=== PATIENT | female | born 2005 | race Caucasian/White ===

== ENCOUNTER 2025-05-29 21:10 | Emergency (ER) | payer OTHER, SELFPAY ==
--- OUTSIDE RECORDS SUMMARY | 2021-10-13 07:01 | XMS_ITS | Continuity of Care Document ---
Author Organization [facility] Address [address] [address] [place] [address] Care Team Providers Care Carbide Tool Maker Name Role Phone [place], [place] Unavailable Unav ailable Procedures Procedure Date Sigmoi Colono Advance Directives Directive Yes / No Effective Date File Name No Information Encounters Encounter Description Practice Location Reason(s) For Visit Diagnoses Date Provider Providers Copied on Encounter [facility], [address] [address], [place], [place], [id number], [place] [facility] No [facility]. [address] [address], [place], [place], [id number], [place]. tel:[phone] [facility], [address] [address], [place], [place], [id number], [place] [facility] No Information [facility]. [address] [address], [place], [place], [id number], [place]. tel:[phone] Family History Family Member Type Diagnosis Age At Onset No Information Payers Payer name Insurance type Covered republican ID Violetta knox(s) [facility] [id number] Social History Type Description Quantity Date Captured Comments Sex Female Smoking Status No Information Chief Complaint And Reason For Visit No Information Reason For Referral Reason For Referral No Information History Of Present Illness Encounter Date Complaint History Of Prese nt Illness No Information Functional Status Date Functional Assessmen t No Information Instructions Date Instruction Additional Infor mation No Information Assessments Type Assessment Date No Information Patient Care Teams Name Effective Dates (start - stop) Status Members No Information
--- OUTSIDE RECORDS SUMMARY | 2025-04-23 06:00 | XMS_ITS | Encounter Summary ---
Author Organization [facility] Address [address] [place] [address] Care Team Providers Care Occupational Therapist Home Based Name Role Phone Patricia AnnC Unavailable [phone] Loreto De Jesus PA-C Unavailable [phone] Patricia Ann PA-C Unavailable [phone] Patricia Ann PA-C Primary Care Provider [phone] Loreto De Jesus-C Unavailable [phone] Noé Joseph Unavailable [phone] Encounter Details Date Type Department Care Team (Late st Contact Info) Description 04/23/2025 7:00 AM CDT Virtual Visit [facility] [address] [place] [address] Noé Joseph LICSW [address] [place] [address] Social anxiety disorder (Primary Dx) Social History Tobacco Use Types Packs/Day Years Used Date Smoking Tobacco: Never Smokeless Tobacco: Never Comments:cigar outside Alcohol Use Standard Drinks/Week Comments Never 0 (1 standard drink = 0.6 oz pur e alcohol) Social Connection and Isolation Panel Answer Date Recorded Frequency of Communication with Friends and Fami ly Not on file 07/05/2024 How often do you get togethe r with friends or relatives? Three times a week 07/05/2024 Attends Anabaptism Services Not on file 07/05 Active Member of Clubs or Organizations Not on f ile 07/05/2024 Attends Club or Organization Meetings Not on ken e 07/05/2024 Marital Status Not on file 07/05/2024 AUDIT-C Answer Date Recorded Q1: How often do you have a drink containing alcohol? Never 07/04/2023 Q2: How many drinks containi ng alcohol do you have on a typical day when you are drinking? Patient does not drink Q3: How often do you have si x or more drinks on one occasion? Never 07/04/2023 PHQ-2 Answer Date Recorded PHQ-2 Score 1 04/23/2025 [facility] of Occupat ional Health - Occupational Stress Questionnaire Answer Date Recorded Do you feel stress - tense, restless, nervous, or anxious, or unable to sleep at night because your mind is troubled all the time - these days? Only a little 07/05/2024 Exercise Vital Sign Answer Date Recorde d On average, how many days pe r week do you engage in moderate to strenuous exercise (like a brisk walk)? 3 days 07/05/2024 On average, how many minutes do you engage in exercise at this level? 30 min 07/05/2024 Adolescent Education Answer Date Record ed Getting School Help Needed Not on file 04/21 Food Insecurity Answer Date Recorded Within the past 12 months, d id you worry that your food would run out before you got money to buy more? No 07/05/2024 Within the past 12 months, d id the food you bought just not last and you didn t have money to get more? No 07/05/2024 Housing Stability Answer Date Recorded Do you have housing? (Housin g is defined as stable permanent housing and does not include staying outside in a car, in a tent, in an abandoned building, in an overnight fdc, or couch-surfing.) Yes 07/05/2024 Are you worried about losing your housing? No 07/05/2024 Financial Resource Strain Answer Date R ecorded Within the past 12 months, h ave you or your family members you live with been unable to get utilities (heat, electricity) when it was really needed? No 07/05/2024 Transportation Needs Answer Date Record ed Within the past 12 months, h as lack of transportation kept you from medical appointments, getting your medicines, non-medical meetings or appointments, work, or from getting things that you need? No 07/05/2024 Interpersonal Safety Answer Date Record ed Do you feel physically and e motionally safe where you currently live? Yes 07/06/2024 Within the past 12 months, h ave you been hit, slapped, kicked or otherwise physically hurt by someone? No 07/06/2024 Within the past 12 months, h ave you been humiliated or emotionally abused in other ways by your partner or ex-partner? No 07/06/2024 Comments No Sex and Gender Information Value Date Recorded Sex Assigned at Not on file Legal Sex Female 4:30 AM DIE SETTER Gender Identity Not on file Sexual Orientation Not on file documented as of this encounter Progress Notes * Noé Joseph, ANALYSIS CONSULTANT - 04/23/2025 7:00 AM CDT Images from the original note were not included. [facility] Progress Note Patient Name: Milly Philip Date: 04/23/2025 Service Type: Individual Session Start Time: 7am Session End Time: 7:55am Session Length: 55 min Session #: 11 Attendees: Client attended alone Service Modality: Video Visit: Provider verified identity through the following two step process. Patient provided: Patient and Patient address Telemedicine Visit: The patient's condition can be safely assessed and treated via synchronous audio and visual telemedicine encounter. Reason for Telemedicine Visit: Patient has requested telehealth visit Originating Site (Patient Location): Patient's home Distant Site (Provider Location): Provider Remote Setting- Home Office Consent: The patient/guardian has verbally consented to: the potential risks and benefits of telemedicine (video visit) versus in person care; bill my insurance or make self-payment for services provided; and responsibility for payment of non-covered services. Patient would like the video invitation sent by: My Chart Mode of Communication: Video Conference via [facility] Distant Location (Provider): Off-site As the provider I attest to compliance with applicable laws and regulations related to telemedicine. DATA Extended Session (53+ minutes): PROLONGED SERVICE IN THE OUTPATIENT SETTING REQUIRING DIRECT ([id number]) PATIENT CONTACT BEYOND THE USUAL SERVICE: - Longer session due to limited access to mental health appointments and necessity to address patient's distress / complexity - due to nature of patient's cognitive / emotional processing style Interactive Complexity: No Crisis: No Progress Since Last Session (Related to Symptoms / Goals / Homework): Symptoms: Worsening (anxiety) Homework: Achieved / completed to satisfaction Episode of Care Goals: Satisfactory progress - ACTION (Actively working towards change); Intervenedby reinforcing change plan / affirming steps taken Current / Ongoing Stressors and Concerns: -Patient reports that the past two weeks has been very stressful due to her mid term exams / projects. -Patient reports that when she is feeling really stressed she has a really tough time managing thehighs and lows of my emotions. -Patient reports that she printed out an emotion wheel to help her identify how she's feeling. -Patient reports that when she is alone she can manage her emotions better than when she is with others. -Processed through recent feeling of disconnect in her relationship. -Patient also described themes related to comparison and finding ways to separate herself from others. Treatment Objective(s) Addressed in This Session: use at least 2 coping skills for anxiety management in the next 2 weeks, use cognitive strategies identified in therapy to challenge anxious thoughts Intervention: CBT: cognitive restructuring DBT: validation, distress tolerance skills Emotion Focused Therapy: radical acceptance of emotions, emotion identification Motivational Interviewing: OARS skills, stages of change Solution Focused: strengths-based Reviewed window of tolerance, hypoarousal, and hyperarousal. Locus of control Assessments completed prior to visit: The following assessments were completed by patient for this visit: PHQ9: 01/31/2024 12:23 PM 07/06/2024 1:16 PM 08/19/2024 10:50 AM 10/16/2024 8:41 AM 11/20/2024 7:41 AM 03/12/2025 7:54 AM 04/23/2025 6:54 AM PHQ-9 SCORE PHQ-9 Total Score MyChart 1 (Minimal depression) 2 (Minimal depression) 2 (Minimal depression) 0 0 3 (Minimal depression) PHQ-9 Total Score 1 1 2 2 0 0 3 Patient-reported GAD7: 10/07/2023 7:16 PM 01/31/2024 12:23 PM 02/14/2024 12:50 PM 07/06/2024 1:16 PM 09/17/2024 7:09 PM 12/30/2024 4:19 PM 04/20/2025 4:49 PM TANISHA-7 SCORE Total Score 8 (mild anxiety) 4 (minimal anxiety) 4 (minimal anxiety) 9 (mild anxiety) 3 (minimal anxiety) 6 (mild anxiety) Total Score 8 4 4 3 9 3 6 Patient-reported PROMIS 10-Global Health (only subscores and total score): 08/08/2023 1:02 PM 12/16/2023 3:55 PM 01/31/2024 12:25 PM 07/05/2024 3:32 PM 10/16/2024 8:42 AM 03/08/2025 1:19 PM PROMIS-10 Scores Only Global Mental Health Score 13 14 13 16 13 16 Global Physical Health Score 14 14 14 18 16 16 PROMIS TOTAL - SUBSCORES 27 28 27 34 29 32 Patient-reported ASSESSMENT: Current Emotional / Mental Status (status of significant symptoms): Risk status (Self / Other harm or suicidal ideation) Patient denies current fears or concerns for personal safety. Patient denies current or recent suicidal ideation or behaviors. Patient denies current or recent homicidal ideation or behaviors. Patient denies current or recent self injurious behavior or ideation. Patient denies other safety concerns. Patient reports there has been no change in risk factors since their last session. Patient reports there has been no change in protective factors since their last session. Recommended that patient call 911 or go to the local ED should there be a change in any of these risk factors Appearance: Appropriate Eye Contact: Good Psychomotor Behavior: Normal Attitude: Cooperative Orientation: All Speech Rate / Production: Normal Volume: Normal Mood: Anxious Affect: Worrisome Thought Content: Clear Thought Form: Coherent Logical Insight: Good Medication Review: No current psychiatric medications prescribed Medication Compliance: NA Changes in Health Issues: None reported Chemical Use Review: Substance Use: Chemical use reviewed, no active concerns identified Tobacco Use: No current tobacco use. Diagnosis: 1. Social anxiety disorder Collateral Reports Completed: Not Applicable PLAN: (Patient Tasks / Therapist Tasks / Other) In the coming month, patient will challenge shaming self talk. Patient will draw awareness to window of tolerance. Patient will utilize positive self affirmations. Patient will tap into idea of transience as it relates to emotional states. Patient will practice radical acceptance around unwanted emotions. Next appt: 05/21. ANNY Delacruz, ANALYSIS CONSULTANT 04/23/2025 Individual Treatment Plan Patient's Name: Milly Philip Date Of : 2005 Date of Creation: 01/31/2024 Date Treatment Plan Last Reviewed/Revised: 03/12/2025 DSM5 Diagnoses: 300.23 (F40.10) Social Anxiety Disorder Psychosocial / Contextual Factors: relational dynamics, school stressors, upcoming study abroad trip PROMIS (reviewed every 90 days): 08/08/2023 1:02 PM 12/16/2023 3:55 PM 01/31/2024 12:25 PM 07/05/2024 3:32 PM 10/16/2024 8:42 AM 03/08/2025 1:19 PM PROMIS-10 Scores Only Global Mental Health Score 13 14 13 16 13 16 Global Physical Health Score 14 14 14 18 16 16 PROMIS TOTAL - SUBSCORES 27 28 27 34 29 32 Patient-reported Referral / Collaboration: Referral to another professional/service is not indicated at this time.. Anticipated number of session for this episode of care: 12+ Anticipation frequency of session: Monthly Anticipated Duration of each session: 53 or more minutes Treatment plan will be reviewed in 90 days or when goals have been changed. MeasurableTreatment Goal(s) related to diagnosis / functional impairment(s) Goal 1: Patient will decrease symptoms of anxiety as evidenced by decreased TANISHA- 7 score. ???I will know I've met my goal when I feel less stuck with my thoughts and more confident in social settings.??? Objective #A (Patient Action) Patient will use at least 2 coping skills for anxiety management in the next 2 weeks. Use cognitive strategies identified in therapy to challenge anxious thoughts. Status: continued: 07/07/2024, 10/16/2024, 03/12/2025 Intervention(s) Therapist will teach CBT skills to challenge cognitive distortions and core beliefs. Therapist will teach and model positive self-talk behaviors. Therapist will use psychodynamic approaches to explore early attachments and schemas. Patient has reviewed and agreed to the above plan. ANNY Delacruz LICSW 03/12/2025 documented in this encounter Plan of Treatment Upcoming Encounters Date Type Department Care Team (Late st Contact Info) Description 06/09/2025 8:30 AM DIE SETTER Office Visit [facility] [id number] [place] [phone] Kesha Monique PA-C [id number] [place] [phone] 06/18/2025 10:00 AM DIE SETTER Virtual Visit [facility] [address] [place] [phone] Noé Joseph[address] [address] 08/11/2025 10:00 AM DIE SETTER Virtual Visit [facility] [address] [place] [phone] Noé Joseph[address] [address] documented as of this encounter Visit Diagnoses Diagnosis Social anxiety disorder- Primary Social phobia documented in this encounter Additional Health Concerns Assessment Noted Time PHQ-9 Depression Total Score: 3 04/23/20 25 6:54 AM CDT documented as of this encounter Care Teams Occupational Therapist Home Based Relationship Specialty Start Date End Date Patricia Ann PA-C [id number] [place] [phone] PCP - General Family Medicine 02/24/24 Patricia Ann PA-C [id number] [place] [phone] Referring Physician Family Medicine 07/05/23 Loreto De Jesus PA-C [address] [place] [address] Physician Braille Operator Dermatology 07/05/23 Patricia Ann PA-C [address] [place] [phone] Assigned PCP 07/13/23 Loreto De Jesus PA-C [address] [place] [address] Assigned Dermatology Provider 09/27/24 Noé Joseph LICSW [address] [place] [address] Assigned Behavioral Health Provider 11/27/24 documented as of this encounter
--- OUTSIDE RECORDS SUMMARY | 2025-05-21 08:00 | XMS_ITS | Encounter Summary ---
Author Organization [facility] Address [address] [place] [address] Care Team Providers Care High [employer] Auto Repair Teacher Name Role Phone Patricia AnnC Unavailable Loreto De Jesus PA-C Unavailable [phone] Patricia Ann PA-C Unavailable [phone] Patricia Ann PA-C Primary Care Provider [phone] Loreto De JesusC Unavailable [phone] Noé Joseph Unavailable [phone] Encounter Details Date Type Department Care Team (Late st Contact Info) Description 05/21/2025 8:00 AM CONTROL CENTER OPERATOR Virtual Visit [facility] [address] [place] [phone] Noé Joseph LICSW [address] [place] [address] Social anxiety disorder (Primary Dx) Social History [...] relatives? Three times a week 07/05/2024 Attends Church Services Not on file 07/05 Active Member [...] 07/04/2023 PHQ-2 Answer Date Recorded PHQ-2 Score 2 05/21/2025 [facility] [place] of Occupat ional Health - Occupational Stress [...] in an abandoned building, in an overnight jail, or couch-surfing.) Yes 07/05/2024 Are you worried [...] on file Legal Sex Female 4:30 AM CONTROL CENTER OPERATOR Gender Identity Not on file Sexual Orientation Not on file documented as of this encounter Progress Notes * Noé Joseph, NERVE SPECIALIST - 05/21/2025 8:00 AM CST Images from the original note were not included. [facility] Progress Note Patient Name: Milly Philip Date: 05/21/2025 Service Type: Individual Session Start Time: 8:05am Session End Time: 9am Session Length: 55 min Session #: 12 Attendees: Client attended alone Service Modality: Video [...] Chart Mode of Communication: Video Conference via [facility] Distant Location (Provider): Off-site As the provider I attest to compliance with applicable laws and regulations related to telemedicine. DATA Extended Session (53+ minutes): PROLONGED SERVICE IN THE OUTPATIENT SETTING REQUIRING DIRECT ([id number]) PATIENT CONTACT BEYOND THE USUAL SERVICE: - [...] Ongoing Stressors and Concerns: -Patient reports that she has been feeling very anxious the past several weeks. -Patient reports that she just found out she has a lab with an estranged friend - feels this is theprimary stressor driving anxiety. -Session was spent processing through pros and cons of various options within her locus of control. Treatment Objective(s) Addressed in This Session: use at least 2 coping skills for anxiety management in the next 2 weeks, use cognitive strategies identified in therapy to challenge anxious thoughts Intervention: CBT: cognitive restructuring DBT: validation, distress tolerance skills Emotion Focused Therapy: radical acceptance of emotions, emotion identification Motivational Interviewing: OARS skills, stages of change Solution Focused: strengths-based Therapist helped patient to clarify her thoughts and emotions tied to various options / pros and cons. Discussed physical, mental, and emotional boundaries and limit-setting with others. Explored management of boundaries through direct communication and limiting contact and communication with others. Discussed barriers to using boundary management skills including strong emotions and physical proximity. Client given handout on boundaries today in session. Assessments completed prior to visit: The following assessments were completed by patient for this visit: PHQ9: 07/06/2024 1:16 PM 08/19/2024 10:50 AM 10/16/2024 8:41 AM 11/20/2024 7:41 AM 03/12/2025 7:54 AM 04/23/2025 6:54 AM 05/20/2025 11:16 AM PHQ-9 SCORE PHQ-9 Total Score MyChart 2 (Minimal depression) 2 (Minimal depression) 0 0 3 (Minimal depression) 5 (Mild depression) PHQ-9 Total Score 1 2 2 0 0 3 5 Patient-reported GAD7: 01/31/2024 12:23 PM 02/14/2024 12:50 PM 07/06/2024 1:16 PM 09/17/2024 7:09 PM 12/30/2024 4:19 PM 04/20/2025 4:49 PM 05/20/2025 11:17 AM TANISHA-7 SCORE Total Score 4 (minimal anxiety) 4 (minimal anxiety) 9 (mild anxiety) 3 (minimal anxiety) 6 (mild anxiety) 7 (mild anxiety) Total Score 4 4 3 9 3 6 7 Patient-reported PROMIS 10-Global Health (only subscores and [...] Other) In the coming month, patient will practice [id number]. Patient will disengage from ruminating thoughts. Patient will practice mental and emotional boundary setting. Next appt: 06/18. ANNY Delacruz, NERVE SPECIALIST 05/21/2025 Individual Treatment Plan Patient's Name: Milly Philip [...] and agreed to the above plan. ANNY Delacruz, NERVE SPECIALIST 03/12/2025 ROL CENTER OPERATOR documented in this encounter Plan of Treatment Upcoming Encounters Date Type Department Care Team (Late st Contact Info) Description 06/09/2025 8:30 AM CONTROL CENTER OPERATOR Office Visit [facility] [address] [place] [phone] Kesha Monique PA-C [address] [place] [address] 06/18/2025 10:00 AM CONTROL CENTER OPERATOR Virtual Visit [facility] [address] [place] [phone] Noé Joseph [address] [address] 08/11/2025 10:00 AM CONTROL CENTER OPERATOR Virtual Visit [facility] [address] [place] [address] Noé Joseph [address] [address] documented as of this encounter Visit Diagnoses Diagnosis Social anxiety disorder- Primary Social phobia documented in this encounter Additional Health Concerns Assessment Noted Time PHQ-9 Depression Total Score: 5 05/20/20 25 11:16 AM CONTROL CENTER OPERATOR documented as of this encounter Care Teams [employer] Auto [employer] Teacher Relationship Specialty Start Date End Date Patricia Ann PA-C [address] [place] [phone] PCP - General Family Medicine 02/24/24 Patricia Ann PA-C [address] [place] [phone] Referring Physician Family Medicine 07/05/23 Loreto De Jesus PA-C [address] [place] [address] Physician Model And Mold Maker Plaster Dermatology 07/05/23 Patricia Ann PA-C [address] [place] [phone] Assigned PCP 07/13/23 Loreto De Jesus PA-C [address] [place] [address] Assigned Dermatology Provider 09/27/24 Noé Joseph LICSW [address] [place] [address] Assigned Behavioral Health Provider 11/27/24 documented as of this encounter
--- OUTSIDE RECORDS SUMMARY | 2025-05-26 09:58 | XMS_ITS | Continuity of Care Document ---
Author Organization [facility] Address [address] [address] [place] [address] Phone Care Team Providers Care Nurse Practitioner Manager Name Role Phone Denise HARRINGTON, Hawk Unavailable Unavailable Allergies, Adverse Reactions, Alerts Substance Reaction Status Criticality shellfish derived Active No Informa tion ibuprofen Active No Information Medications Medication Instructions Dosage Effective Dates (start - stop) Status Comments ergocalciferol (vitamin D2) 1,250 mcg (50,000 unit) capsule Take one capsule every 7 days ( once per week). - Active mesalamine 1.2 gram tablet,delayed release take 4 Tablet by ORAL route every day with a meal 4.8 G - Active Labs needed for further refills ENTYVIO Administer Entyvio 300 mg every 4 weeks infuse by IV route - Active dicyclomine 10 mg capsule take 1 capsule by oral route 3 times every day as needed 10 MG - Active ergocalciferol (vitamin D2) 1,250 mcg (50,000 unit) capsule Take one capsule every 7 days ( once per week). - Active IBgard 90 mg capsule,delayed,exten ded release take 2 capsule by oral route every day 2 capsule - Active Entyvio 300 mg intravenous solution Administer Entyvio 300 mg every four weeks, infuse by IV route - Active Levsin 0.125 mg tablet take 1 tablet by oral route every 6 hours as needed 0.125 MG - Active Procedures Procedure Date Entyvio - vedolizumab Intravenous Iv Infus Therap/dx-by Phys; To Iv Infus Therap/dx-by Phys; To Entyvio - vedolizumab Intravenous Entyvio - vedolizumab Intravenous Iv Infus Therap/dx-by Phys; To Offic/outpt E&m Estab Low Complex e/m visit add on Routine Serum Collection Entyvio - vedolizumab Intravenous Iv Infus Therap/dx-by Phys; To Entyvio - vedolizumab Intravenous Iv Infus Therap/dx-by Phys; To Entyvio - vedolizumab Intravenous Iv Infus Therap/dx-by Phys; To Entyvio - vedolizumab Intravenous Iv Infus Therap/dx-by Phys; To Entyvio - vedolizumab Intravenous Iv Infus Therap/dx-by Phys; To Routine Serum Collection Routine Serum Collection Entyvio - vedolizumab Intravenous Iv Infus Therap/dx-by Phys; To Routine Serum Collection Offic/outpt E&m Estab Low-mod Entyvio - vedolizumab Intravenous Iv Infus Therap/dx-by Phys; To Routine Serum Collection Entyvio - vedolizumab Intravenous Iv Infus Therap/dx-by Phys; To Entyvio - vedolizumab Intravenous Iv Infus Therap/dx-by Phys; To Entyvio - vedolizumab Intravenous Iv Infus Therap/dx-by Phys; To Entyvio - vedolizumab Intravenous Iv Infus Therap/dx-by Phys; To Entyvio - vedolizumab Intravenous Iv Infus Therap/dx-by Phys; To Routine Serum Collection Entyvio - vedolizumab Iv Infus Therap/dx-by Phys; To Entyvio - vedolizumab Iv Infus Therap/dx-by Phys; To Routine Serum Collection Colonoscopy Flex; W/bx 1/mx Level Iv-surg Path Gross/micro Immunocytochemistry, Each Antibody Entyvio - vedolizumab Iv Infus Therap/dx-by Phys; To Entyvio - vedolizumab Iv Infus Therap/dx-by Phys; To Offic/outpt E&m Estab Low-mod Entyvio - vedolizumab Iv Infus Therap/dx-by Phys; To Entyvio - vedolizumab Iv Infus Therap/dx-by Phys; To Routine Serum Collection Entyvio - vedolizumab Iv Infus Therap/dx-by Phys; To Entyvio - vedolizumab Iv Infus Therap/dx-by Phys; To Entyvio - vedolizumab Iv Infus Therap/dx-by Phys; To Entyvio - vedolizumab Iv Infus Therap/dx-by Phys; To Entyvio - vedolizumab Iv Infus Therap/dx-by Phys; To Entyvio - vedolizumab Iv Infus Therap/dx-by Phys; To Routine Serum Collection Entyvio - vedolizumab Iv Infus Therap/dx-by Phys; To Entyvio - vedolizumab Iv Infus Therap/dx-by Phys; To Entyvio - vedolizumab Iv Infus Therap/dx-by Phys; To Routine Serum Collection Iv Infus Therap/dx-by Phys; To Entyvio - vedolizumab Entyvio - vedolizumab Iv Infus Therap/dx-by Phys; To Established Level 4 Offic/outpt E&m Estab Mod-ct 2 Routine Serum Collection Iv Infus Therap/dx-by Phys; To Entyvio - vedolizumab Routine Serum Collection Established Level 5 Iv Infus Therap/dx-by Phys; To Entyvio - vedolizumab Routine Serum Collection Established Level 4 Iv Infus Therap/dx-by Phys; To Entyvio - vedolizumab Iv Infus Therap/dx-by Phys; To Entyvio - vedolizumab Iv Infus Therap/dx-by Phys; To Entyvio - vedolizumab Routine Serum Collection Sigmoidoscopy Flex; W/bx 1/mx 2 Level Iv-surg Path Gross/micro Immunocytochemistry, Each Antibody Routine Serum Collection Routine Serum Collection Dietitian New Virtual Visit Established Level 4 Routine Serum Collection Established Level 4 Offic/outpt E&m Estab Established Level 3 IV Infusion Up To 1 Hour Remicade Per 10 Mg Stool Kits Given IV Infusion Up To 1 Hour Remicade Per 10 Mg Routine Serum Collection C-reactive Prot Comp Metabolic Panel Bld Ct; Hg/pltlt Ct Auto/compl Sed Rate, Erythrocyte; Auto IV Infusion Up To 1 Hour Remicade Per 10 Mg IV Infusion Up To 1 Hour Remicade Per 10 Mg IV Infusion Up To 1 Hour Remicade Per 10 Mg Established Level 3 Colonoscopy Flex; W/bx 1/mx Level Iv-surg Path Gross/micro Immunocytochemistry, Each Antibody IV Infusion Up To 1 Hour Remicade Per 10 Mg Routine Serum Collection C-reactive Prot Comp Metabolic Panel Bld Ct; Hg/pltlt Ct Auto/compl 20 Sed Rate, Erythrocyte; Auto Offic/outpt E&m Estab Low-mod 0 Routine Serum Collection Ag-immunoassay; Hep B Surface 0 New Level 3 or 30-44 min Advance Directives Directive Yes / No Effective Date File Name No Information Encounters Encounter Description Practice Location Reason(s) For Visit Diagnoses Date Provider Providers Copied on Encounter [facility], [address] [address], [place], [place], [id number], [place] tel:[phone] [facility] [place] Ulcerative (chronic) pancolitis without complications 5 Denise Arechiga. [address] [place] [address], [id number], [place]. tel:[phone] [facility], [address] [address], [place], [place], [id number], [place] tel:[phone] [facility] [place] Ulcerative (chronic) pancolitis without complications 5 John Branham. [address] [place] [address], [id number], [place]. tel:[phone] Referring Provider: Referral Self, USE FOR SELF REFERRALS. [facility], [address] [address], [place], [place], [id number], [place] tel:[phone] No Information 5 Comfort Acosta. [address] [place] [address], [id number], [place]. tel:[phone] [facility], [address] [address], [place], [id number], [place] tel:[phone] [facility] [place] Ulcerative (chronic) pancolitis without complications 5 Densie Arechiga. [address] [place] [address], [id number], [place]. tel:[phone] [facility], [address] [address], [place], [id number], [place] tel:[phone] [facility] [place] Ulcerative (chronic) pancolitis without complications Oct-0 5 Flako Conner. [address] [place] [address], [id number], . tel:[phone] Referring Provider: Referral Self, USE FOR SELF REFERRALS. [facility], [address] [address], [place], [id number], [place] tel:[phone] [facility] [place] Ulcerative (chronic) pancolitis without complications Sep-2 - 5 Denise Arechiga. [address] [place] [address], [id number], [place]. tel:[phone] [facility], [address] [address], [place], [id number], [place] tel:[phone] [facility] No Information Sep-0 5 Denise Arechiga. [address] [place] [address], [id number], [place]. tel:[phone] Olamide Calhoun PHOTOGRAPH FINISHER. tel:[phone] [facility], [address] [address], [place], [id number], [place] tel:[phone] [facility] [place] Ulcerative (chronic) pancolitis without complications Sep-0 5 Yvonne Morrison. [address] [place] [address], [id number], [place]. tel:[phone] Olamide Calhoun PHOTOGRAPH FINISHER. tel:[phone] erring Provider: Referral Self, USE FOR SELF REFERRALS. Offic/outpt E&m Estab Low [facility], [address] [address], [place], [place], [id number], [place] tel:[phone] [facility] GI Symptoms or Concerns (chief complaint)P revious History Review (chief complaint) Ulcerative colitis, unspecified, without complications Sep-0 2- 5 Denise Arechiga. [address] [place] [address] [place], [place], [id number], [place]. tel:[phone] Olamide Calhoun NP. tel:[phone] erring Provider: Referral Self, USE FOR SELF REFERRALS. [facility], [address] [address], [place], [id number], [place] tel:[phone] [facility] [place] Ulcerative (chronic) pancolitis without complications 5 eDnise Arechiga. [facility] [address], [id number], [place]. tel:[phone] [facility], [address] [address], [place], [id number], [place] tel:[phone] [facility] No Information 5 Denise Arechiga. [address] [place] [address], [id number], [place]. tel:[phone] [facility], [address] [address], [place], [id number], [place] tel:[phone] [facility] [place] Ulcerative (chronic) pancolitis without complications November-0 5 John Branham. [address] [place] [address], [id number], [place]. tel:[phone] Olamide Calhoun NP. tel:[phone] erring Provider: Referral Self, USE FOR SELF REFERRALS. [facility], [address] [address], [place], [address], [place] tel:[phone] [facility] [place] Ulcerative (chronic) pancolitis without complications 3 0 5 Denise Arechiga. [address] [place] [address], [id number], [place]. tel:[phone] Olamide Calhoun NP. tel:[phone] [facility], [address] [address], [place], [id number], [place] tel:[phone] [facility] [place] Ulcerative (chronic) pancolitis without complications 0 5 Mai Kelly. [address], [id number], [place]. tel:[phone] Olamide Calhoun PHOTOGRAPH FINISHER. tel:[phone] erring Provider: Referral Self, USE FOR SELF REFERRALS. [facility], [address] [address], [place], [id number], [place] tel:[phone] [facility] Ulcerative (chronic) pancolitis without complications 5 Denise Arechiga. [address] [place] [address], [id number], [place]. tel:[phone] [facility], [address] [address], [place], [id number], [place] tel:[phone] [facility] [place] Ulcerative (chronic) pancolitis without complications 0 5 Lamar Nevarez. [address], [id number], [place]. tel:[phone] Olamide Calhoun PHOTOGRAPH FINISHER. tel:[phone] erring Provider: Referral Self, USE FOR SELF REFERRALS. [facility], [address] [address], [place], [address], [place] tel:[phone] [facility] [place] Ulcerative (chronic) pancolitis without complications 5 Denise Arechiga. [address], [id number], [place]. tel:[phone] Olamide Calhoun NP. tel:[phone] [facility], [address] [address], [place], [id number], [place] tel:[phone] [facility] [place] Ulcerative (chronic) pancolitis without complications 5 Osmany De Luna. [address] [place] [address], [id number], [place]. tel:[phone] Referring Provider: Referral Self, USE FOR SELF REFERRALS. [facility], [address] [address], [place], [id number], [place] tel:[phone] [facility] [place] Ulcerative (chronic) pancolitis without complications 5 Denise Arechiga. [address] [facility], [address], [id number], [place]. tel:[phone] [facility], [address] [address], [place], [id number], [place] tel:[phone] [facility] [place] Ulcerative (chronic) pancolitis without complications 5 Bisi Sharpe. [address], [id number], [place]. tel:[phone] Olamide Calhoun PHOTOGRAPH FINISHER. [phone] erring Provider: Referral Self, USE FOR SELF REFERRALS. [facility], [address] [address], [place], [id number], [place] tel:[phone] [facility] Ulcerative (chronic) pancolitis without complications 5 Denise Arechiga. [address] [place] [address], [id number], [place]. tel:[phone] Olamide Calhoun PHOTOGRAPH FINISHER. tel:[phone] erring Provider: Referral Self, USE FOR SELF REFERRALS. [facility], [address] [address], [place], [id number], [place] tel:[phone] [facility] [place] Ulcerative (chronic) pancolitis without complications 4 Denise Arechiga. [address], [id number], [place]. tel:[phone] [facility], [address] [address], [place], [id number], [place] tel:[phone] [facility] No Information 4 Denise Arechiga. [address] [facility], [facility] [address], [place], [id number], [place]. tel:[phone] [facility], [address] [address], [place], [address], [place] tel:[phone] [facility] Ulcerative (chronic) pancolitis without complications 4 Denise Arechiga. [address] [facility], [facility] [address], [place], [id number], [place]. tel:[phone] Referring Provider: Referral Self, USE FOR SELF REFERRALS. [facility], [address] [address], [place], [id number], [place] tel:[phone] [facility] No Information Feb- 4 Denise Arechiga. [address] [place] [address], [facility] [address], [place], [id number], [place]. tel:[phone] Olamide Calhoun NP. tel:[phone] [facility], [address] [address], [place], [id number], [place] tel:[phone] [facility] [place] Ulcerative (chronic) pancolitis without complications 4 Lamar Nevarez. [address] [facility], [facility] [address], [place], [id number], [place]. tel:[phone] Olamide Calhoun NP. tel:[phone] erring Provider: Referral Self, USE FOR SELF REFERRALS. [facility], [address] [address], [place], [address], [place] tel:[phone] [facility] Ulcerative (chronic) pancolitis without complications 4 Denise Arechiga. [address] [place] [address], [id number], [place]. tel:[phone] Referring Provider: Referral Self, USE FOR SELF REFERRALS. [facility], [address] [address], [place], [address], [place] tel:[phone] [facility] [place] Ulcerative (chronic) pancolitis without complications 4 Denise Arechiga. [address] [facility], [address], [id number], [place]. tel:[phone] Offic/outpt E&m Estab Low-mod [facility], [address] [address], [place], [id number], [place] tel:[phone] [facility] GI Symptoms or Concerns (chief complaint)P revious History Review (chief complaint) Ulcerative (chronic) pancolitis without complications 4 Denise Arechiga. [address] [place] [address], [facility] [address], [place], [id number], [place]. tel:[phone] Olamide Calhoun PHOTOGRAPH FINISHER. tel:[phone] erring Provider: Referral Self, USE FOR SELF REFERRALS. [facility], [address] [address], [place], [id number], [place] tel:[phone] [facility] Ulcerative (chronic) pancolitis without complications 4 Chel Hernandez. [address] [place] [address], [facility] [address], [place], [id number], [place]. tel:[phone] Olamide Calhoun PHOTOGRAPH FINISHER. tel:[phone] erring Provider: Referral Self, USE FOR SELF REFERRALS. [facility], [address] [address], [place], [id number], [place] tel:[phone] [facility] Ulcerative (chronic) pancolitis without complications 4 Denise Arechiga. [address] [facility], [facility] [address], [place], [id number], [place]. tel:[phone] Referring Provider: Referral Self, USE FOR SELF REFERRALS. [facility], [address] [address], [place], [id number], [place] tel:[phone] [facility] Ulcerative (chronic) pancolitis without complications 4 Denise Arechiga. [address] [place] [address], [id number], [place]. tel:[phone] [facility], [address] [address], [place], [id number], [place] tel:[phone] [facility] [place] Ulcerative (chronic) pancolitis without complications 4 Mian Sharpe. [address] [place] [address], [id number], [place]. tel:[phone] Olamide Calhoun PHOTOGRAPH FINISHER. tel:[phone] erring Provider: Referral Self, USE FOR SELF REFERRALS. [facility], [address] [address], [place], [id number], [place] tel:[phone] [facility] [place] Ulcerative (chronic) pancolitis without complications 4 Denise Arechiga. [address] [place] [address], [id number], [place]. tel:[phone] Olamide Calhoun PHOTOGRAPH FINISHER. tel:[phone] [facility], [address] [address], [place], [id number], [place] tel:[phone] [facility] [place] Ulcerative (chronic) pancolitis without complications 4 Chel Hernandez. [address] [place] [address], [id number], [place]. tel:[phone] Olamide Calhoun NP. tel:[phone] erring Provider: Referral Self, USE FOR SELF REFERRALS. [facility], [address] [address], [place], [id number], [place] tel:[phone] [facility] [place] Ulcerative (chronic) pancolitis without complications 4 Denise Arechiga. [address] [place] [address], [id number], [place]. tel:[phone] [facility], [address] [address], [place], [id number], [place] tel:[phone] [facility] [place] Ulcerative (chronic) pancolitis without complications 4 Hemant Spangler. [address] [place] [address], [id number], [place]. tel:[phone] Olamide Calhoun PHOTOGRAPH FINISHER. tel:[phone] erring Provider: Referral Self, USE FOR SELF REFERRALS. [facility], [address] [address], [place], [id number], [place] tel:[phone] [facility] [place] Ulcerative (chronic) pancolitis without complications 4 Denise Arechiga. [address] [place] [address], [id number], [place]. tel:[phone] [facility], [address] [address], [place], [id number], [place] tel:[phone] [facility] [place] Ulcerative (chronic) pancolitis without complications 0 4 Matias Henley. [address] [place] [address], [id number], [place]. tel:[phone] Olamide Calhoun PHOTOGRAPH FINISHER. tel:[phone] erring Provider: Referral Self, USE FOR SELF REFERRALS. [facility], [address] [address], [place], [id number], [place] tel:[phone] [facility] [place] Ulcerative (chronic) pancolitis without complications 4 Denise Arechiga. [address] [place] [address], [id number], [place]. tel:[phone] [facility], [address] [address], [place], [id number], [place] tel:[phone] [facility] [place] Ulcerative (chronic) pancolitis without complications 4 Matias Henley. [address] [place] [address], [id number], [place]. tel:[phone] Olamide Calhoun NP. tel:[phone] erring Provider: Referral Self, USE FOR SELF REFERRALS. [facility], [address] [address], [place], [address], [place] tel:[phone] [facility] [place] Ulcerative (chronic) pancolitis without complications 4 Denise Arechiga. [address] [place] [address], [id number], [place]. tel:[phone] Olamide Calhoun PHOTOGRAPH FINISHER. tel:[phone] [facility], [address] [address], [place], [id number], [place] tel:[phone] [facility] [place] Ulcerative (chronic) pancolitis without complications 0 4 Mian Sharpe. [address] [place] [address], [id number], [place]. tel:[phone] Olamide Calhoun PHOTOGRAPH FINISHER. tel:[phone] erring Provider: Referral Self, USE FOR SELF REFERRALS. [facility], [address] [address], [place], [id number], [place] tel:[phone] [facility] Ulcerative (chronic) pancolitis without complications 0 4 Denise Arechiga. [address] [place] [address], [id number], [place]. tel:[phone] Olamide Calhoun PHOTOGRAPH FINISHER. tel:[phone] [facility], [address] [address], [place], [id number], [place] tel:[phone] [facility] [place] Ulcerative (chronic) pancolitis without complications 4 Denise Arechiga. [address] [place] [address], [id number], [place]. tel:[phone] Referring Provider: Referral Self, USE FOR SELF REFERRALS. [facility], [address] [address], [place], [address], [place] tel:[phone] [facility] [place] Ulcerative (chronic) pancolitis without complications 4 Mian Sharpe. [address] [facility], [address], [id number], [place]. tel:[phone] Olamide Calhoun PHOTOGRAPH FINISHER. tel:[phone] erring Provider: Referral Self, USE FOR SELF REFERRALS. [facility], [address] [address], [place], [address], [place] tel:[phone] [facility] Ulcerative (chronic) pancolitis without complications 4 Denise Arechiga. [address] [place] [address], [address], [id number], [place]. tel:[phone] Olamide Calhoun PHOTOGRAPH FINISHER. tel:[phone] erring Provider: Referral Self, USE FOR SELF REFERRALS. [facility], [address] [address], [place], [address], [place] tel:[phone] [facility] Ulcerative (chronic) pancolitis without complications 4 Denise Arechiga. [address] [place] [address], [address], [id number], [place]. tel:[phone] Referring Provider: Referral Self, USE FOR SELF REFERRALS. [facility], [address] [address], [place], [id number], [place] tel:[phone] [facility] Ulcerative (chronic) pancolitis without complications 3 Denise Arechiga. [address] [place] [address], [address], [id number], [place]. tel:[phone] [facility], [address] [address], [place], [id number], [place] tel:[phone] [facility] GI Symptoms or Concerns (chief complaint) Ulcerative (chronic) pancolitis without complications Inflammatory polyps of colon without complications Ulcerative (chronic) pancolitis without complications 3 Michael Francisco. [address] [place] [address], [address], [id number], . tel:[phone] Olamide Calhoun PHOTOGRAPH FINISHER. tel:[phone] erring Provider: Referral Self, USE FOR SELF REFERRALS. [facility], [address] [address], [place], [place], [id number], [place] tel:[phone] [facility] [place] Ulcerative (chronic) pancolitis without complications 3 Flako Conner. [address] [place] [address], [id number], [place]. tel:[phone] Referring Provider: Referral Self, USE FOR SELF REFERRALS. [facility], [address] [address], [place], [id number], [place] tel:[phone] [facility] Ulcerative (chronic) pancolitis without complications 3 Denise Arechiga. [address] [place] [address], [id number], [place]. tel:[phone] [facility], [address] [address], [place], [id number], [place] tel:[phone] [facility] [place] Ulcerative (chronic) pancolitis without complications 3 Matias Henley. [facility] [address], [id number], [place]. tel:[phone] Olamide Calhoun PHOTOGRAPH FINISHER. tel:[phone] erring Provider: Referral Self, USE FOR SELF REFERRALS. [facility], [address] [address], [place], [address], [place] tel:[phone] [facility] [place] [place] Ulcerative (chronic) pancolitis without complications 3 Denise Arechiga. [address] [place] [address], [id number], [place]. tel:[phone] Offic/outpt E&m Estab Low-mod [facility], [address] [address], [place], [id number], [place] tel:[phone] [facility] GI Symptoms or Concerns (chief complaint)P revious History Review (chief complaint) Ulcerative (chronic) pancolitis without complications Apr- 3 Denise Arechiga. [address] [place] [address], [address], [id number], [place]. tel:[phone] Olamide Calhoun NP. tel:[phone] erring Provider: Olamide Calhoun NP M, [address] [place] [address], [address]. tel:[phone] [facility], [address] [address], [place], [address], [place] tel:[phone] Infusion [place] Ulcerative (chronic) pancolitis without complications Apr- 3 Denise Arechiga. [address] [place] [address], [address], [id number], [place]. tel:[phone] Olamide Calhoun NP. tel:[phone] [facility], [address] [address], [place], [address], [place] tel:[phone] [facility]fusion [place] Ulcerative (chronic) pancolitis without complications Apr- 3 Jeet Nair. [facility], [address], [id number], [place]. tel:[phone] Referring Provider: Referral Self, USE FOR SELF REFERRALS. [facility], [address] [address], [place], [address], [place] tel:[phone] [facility] [place] Ulcerative (chronic) pancolitis without complications Apr-0 3 Denise Arechiga. [address] [place] [address], [address], [id number], [place]. tel:[phone] Olamide Calhoun NP. tel:[phone] [facility], [address] [address], [place], [address], [place] tel:[phone] Infusion [place] Ulcerative (chronic) pancolitis without complications Sep-07 12-202 3 Mian Sharpe. [address], [id number], [place]. tel:[phone] Olamide Calhoun NP. tel:[phone] erring Provider: Referral Self, USE FOR SELF REFERRALS. [facility], [address] [address], [place], [address], [place] tel:[phone] [facility] Ulcerative colitis, unspecified, without complications 3 Esperanza Palacios. [address], [id number], [place]. tel:[phone] Olamide Calhoun NP. tel:[phone] erring Provider: Referral Self, USE FOR SELF REFERRALS. [facility], [address] [address], [place], [address], [place] tel:[phone] Infusion [place] Ulcerative (chronic) pancolitis without complications 3 Denise Arechiga. [address] [place] [address], [id number], [place]. tel:[phone] [facility], [address] [address], [place], [address], [place] tel:[phone] [facility]fusion [place] Ulcerative (chronic) pancolitis without complications 3 Michael Francisco. [address] [place] [address], [id number], [place]. tel:[phone] Olamide Calhoun NP. tel:[phone] erring Provider: Referral Self, USE FOR SELF REFERRALS. [facility], [address] [address], [place], [address], [place] tel:[phone] Infusion [place] Ulcerative (chronic) pancolitis without complications 3 Denise Arechiga. [address] [place] [address], [id number], [place]. tel:[phone] [facility], [address] [address], [place], [address], [place] tel:[phone] Infusion [place] Ulcerative (chronic) pancolitis without complications 3 Flako Conner. [address] [facility], [facility] [address], [place], [address], [place]. tel:[phone] Olamide Calhoun PHOTOGRAPH FINISHER. [phone] erring Provider: Referral Self, USE FOR SELF REFERRALS. [facility], [address] [address], [place], [address], [place] tel:[phone] [facility] Ulcerative (chronic) pancolitis without complications 3 Denise Arechiga. [address] [facility], [facility] [address], [place], [address], [place]. tel:[phone] [facility], [address] [address], [place], [address], [place] tel:[phone] Infusion [place] Ulcerative (chronic) pancolitis without complications 3 Lamar Nevarez. [address] [facility], [facility] [address], [place], [address], [place]. tel:[phone] Referring Provider: Referral Self, USE FOR SELF REFERRALS. [facility], [address] [address], [place], [address], [place] tel:[phone] Infusion [place] Ulcerative (chronic) pancolitis without complications 3 Denise Arechiga. [address] [facility], [facility] [address], [place], [address], [place]. tel:[phone] [facility], [address] [address], [place], [address], [place] tel:[phone] Infusion [place] Ulcerative (chronic) pancolitis without complications 3 Darius Potter. [address] [facility], [facility] [address], [place], [address], [place]. tel:[phone] Referring Provider: Referral Self, USE FOR SELF REFERRALS. [facility], [address] [address], [place], [address], [place] tel:[phone] Infusion [place] Ulcerative (chronic) pancolitis without complications 3 Denise Arechiga. [address] [facility], [address], [id number], [place]. tel:[phone] Olamide Calhoun NP. tel:[phone] [facility], [address] [address], [place], [address], [place] tel:[phone] Infusion [place] Ulcerative (chronic) pancolitis without complications 3 Osmany De Luna. [address] [place] [address], [address], [id number], [place]. tel:[phone] Olamide Calhoun NP. tel:[phone] erring Provider: Referral Self, USE FOR SELF REFERRALS. [facility], [address] [address], [place], [id number], [place] tel:[phone] Infusion [place] Ulcerative (chronic) pancolitis without complications 3 Denise Arechiga. [address] [facility], [address], [id number], [place]. tel:[phone] [facility], [address] [address], [place], [address], [place] tel:[phone] Infusion [place] Ulcerative (chronic) pancolitis without complications 3 Jayda Grey. [address] [facility], [address], [id number], [place]. tel:[phone] Referring Provider: Referral Self, USE FOR SELF REFERRALS. [facility], [address] [address], [place], [address], [place] tel:[phone] [facility] Ulcerative colitis, unspecified, without complications 3 Esperanza Palacios. [address] [place] [address], [id number], [place]. tel:[phone] Olamide Calhoun PHOTOGRAPH FINISHER. tel:[phone] erring Provider: Referral Self, USE FOR SELF REFERRALS. [facility], [address] [address], [place], [address], [place] tel:[phone] Infusion [place] Ulcerative (chronic) pancolitis without complications 3 Denise Arechiga. [address] [place] [address], [id number], [place]. tel:[phone] [facility], [address] [address], [place], [address], [place] tel:[phone] Infusion [place] Ulcerative (chronic) pancolitis without complications 3 Bisi Sharpe. [address] [place] [address], [id number], [place]. tel:[phone] Olamide Calhoun PHOTOGRAPH FINISHER. tel:[phone] erring Provider: Referral Self, USE FOR SELF REFERRALS. [facility], [address] [address], [place], [address], [place] tel:[phone] Infusion [place] Ulcerative (chronic) pancolitis without complications 3 Denise Arechiga. [address] [place] [address], [id number], [place]. tel:[phone] [facility], [address] [address], [place], [address], [place] tel:[phone] Infusion [place] Ulcerative (chronic) pancolitis without complications 3 Michael Francisco. [address] [place] [address], [id number], [place]. tel:[phone] Olamide Calhoun PHOTOGRAPH FINISHER. tel:[phone] erring Provider: Referral Self, USE FOR SELF REFERRALS. [facility], [address] [address], [place], [address], [place] tel:[phone] [facility] Ulcerative (chronic) pancolitis without complications 3 Denise Arechiga. [address] [facility], [facility] [address], [address], [place]. tel:[phone] [facility], [address] [address], [place], [address], [place] tel:[phone] Infusion [facility] Ulcerative (chronic) pancolitis without complications 2 Ramón Yan. [address] [facility], [facility] [address], [place], [address], [place]. tel:[phone] Olamide Calhoun NP. tel:[phone] erring Provider: Referral Self, USE FOR SELF REFERRALS. [facility], [address] [address], [place], [address], [place] tel:[phone] [facility] Ulcerative (chronic) pancolitis without complications 2 Denise Arechiga. [address] [facility], [address], [id number], [place]. tel:[phone] Referring Provider: Referral Self, USE FOR SELF REFERRALS. [facility], [address] [address], [place], [address], [place] tel:[phone] [facility] No Information 2 Denise Arechiga. [address] [facility], [facility] [address], [place], [address], [place]. tel:[phone] [facility], [address] [address], [place], [address], [place] tel:[phone] Infusion [facility] Ulcerative (chronic) pancolitis without complications 2 Denise Arechiga. [address] [facility], [facility] [address], [place], [address], [place]. tel:[phone] Olamide Calhoun NP. tel:[phone] [facility], [address] [address], [place], [id number], [place] tel:[phone] Infusion [place] Ulcerative (chronic) pancolitis without complications 2 Yvonne Morrison. [address] [facility], [facility] [address], [place], [address], [place]. tel:[phone] Olamide Calhoun PHOTOGRAPH FINISHER. tel:[phone] erring Provider: Referral Self, USE FOR SELF REFERRALS. [facility], [address] [address], [place], [address], [place] tel:[phone] [facility] Ulcerative (chronic) pancolitis without complications 2 Denise Arechiga. [address] [facility], [facility] [address], [place], [address], [place]. tel:[phone] [facility], [address] [address], [place], [address], [place] tel:[phone] Infusion [place] Ulcerative (chronic) pancolitis without complications 2 Lamar Nevarez. [address] [facility], [facility] [address], [place], [address], [place]. tel:[phone] Olamide Calhoun PHOTOGRAPH FINISHER. tel:[phone] erring Provider: Referral Self, USE FOR SELF REFERRALS. [facility], [address] [address], [place], [address], [place] tel:[phone] [facility] Ulcerative pancolitis without complication 2 Denise Arechiga. [address] [facility], [facility] [address], [place], [address], [place]. tel:[phone] Established Level 4 [facility], [address] [address], [place], [address], [place] tel:[phone] [facility] GI Symptoms or Concerns (chief complaint) Ulcerative pancolitis without complication 2 Denise Arechiga. [address], [id number], [place]. tel:[phone] Olamide Calhoun NP. tel:[phone] erring Provider: Referral Self, USE FOR SELF REFERRALS. [facility], [address] [address], [place], [place], [address], [place] tel:[phone] [facility] No Information 2 Lamar Nevarez. [address] [place] [address], [id number], [place]. tel:[phone] Olamide Calhoun NP. tel:[phone] Offic/outpt E&m Estab Mod-hi 2 [facility], [address] [address], [place], [place], [address], [place] tel:[phone] [facility] GI Symptoms or Concerns (chief complaint) Ulcerative pancolitis without complicationR ectal bleedingAbdom inal cramping 0 2 Henri Tanner. [address], [id number], [place]. tel:[phone] Olamide Calhoun NP. tel:[phone] erring Provider: Referral Self, USE FOR SELF REFERRALS. 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 [address], [id number], [place]. tel:[phone] Olamide Calhoun NP. tel:[phone] erring Provider: Referral Self, USE FOR SELF REFERRALS. [facility], [address] [address], [place], [place], [address], [place] tel:[phone] [facility] No Information 2 Guillermo Smith. [address] [place] [address], [id number], [place]. tel:[phone] Olamide Calhoun NP. tel:[phone] erring Provider: Referral Self, USE FOR SELF REFERRALS. Established Level 5 [facility], [address] [address], [facility], [address], [place] tel:[phone] [facility] GI Symptoms or Concerns (chief complaint) Ulcerative colitis, unspecified, without complications Rectal bleeding 2 Guillermo Smith. [address] [facility], [facility] [address], [place], [address], [place]. tel:[phone] Olamide Calhoun NP. tel:[phone] erring Provider: Olamide Calhoun NP M, [address] [place] [address], [address]. tel:[phone] [facility], [address] [address], [facility], [address], [place] tel:[phone] Infusion [place] Ulcerative (chronic) rectosigmoidi tis with oth complication 2 Jayda Grey. [address] [facility], [facility] [address], [place], [address], [place]. tel:[phone] Olamide Calhoun NP. tel:[phone] erring Provider: Referral Self, USE FOR SELF REFERRALS. [facility], [address] [address], [facility], [place], [address], [place] tel:[phone] [facility] Ulcerative (chronic) rectosigmoidi tis with oth complication 2 Esperanza Palacios. [address] [facility], [facility] [address], [place], [address], [place]. tel:[phone] Olamide Calhoun NP. tel:[phone] erring Provider: Suzanne Mata NP, [address] [facility] [address], [facility] [place], [address] . tel:[phone] Established Level 4 [facility], [address] [address], [place], [address], [place] tel:[phone] [facility] GI Symptoms or Concerns (chief complaint)P revious History Review (chief complaint) Ulcerative (chronic) rectosigmoidi tis with oth complication 2 Esperanza Palacios. [address] [place] [address], [id number], [place]. tel:[phone] Olamide Calhoun NP. tel:[phone] erring Provider: Referral Self, USE FOR SELF REFERRALS. [facility], [address] [address], [place], [address], [place] tel:[phone] Infusion [place] Ulcerative (chronic) rectosigmoidi tis with oth complication 2 Carmen Wong. [address] [place] [address], [id number], [place]. tel:[phone] Olamide Calhoun PHOTOGRAPH FINISHER. tel:[phone] erring Provider: Referral Self, USE FOR SELF REFERRALS. [facility], [address] [address], [place], [id number], [place] tel:[phone] Infusion [facility] Ulcerative (chronic) rectosigmoidi tis with oth complication 2 Flako Conner. [address] [place] [address], [id number], [place]. tel:[phone] Referring Provider: Referral Self, USE FOR SELF REFERRALS. [facility], [address] [address], [place], [address], [place] tel:[phone] Infusion [place] Ulcerative (chronic) rectosigmoidi tis with oth complication 2 Yvonne Morrison. [address] [place] [address], [id number], [place]. tel:[phone] Olamide Calhoun NP. tel:[phone] erring Provider: Referral Self, USE FOR SELF REFERRALS. [facility], [address] [address], [place], [id number], [place] tel:[phone] [facility] Ulcerative colitis, unspecified, without complications Oct-2 2 Espreanza PHOTOGRAPH FINISHER Suzanne. [address] [facility], [address], [id number], [place]. tel:[phone] Olamide Calhoun NP. tel:[phone] erring Provider: Referral Self, USE FOR SELF REFERRALS. [facility], [address] [address], [place], [id number], [place] tel:[phone] [facility] Ulcerative rectosigmoidi tis with other complicationU lcerative (chronic) rectosigmoidi tis with oth complication Oct-0 2 No Information Olamide Calhoun NP. tel:[phone] erring Provider: Referral Self, USE FOR SELF REFERRALS. [facility], [address] [address], [place], [address], [place] tel:[phone] [facility] Ulcerative colitis, unspecified, without complications Sep-2 2 Esperanza PHOTOGRAPH FINISHER Suzanne. [address] [facility], [address], [id number], [place]. tel:[phone] [facility], [address] [address], [place], [address], [place] tel:[phone] [facility] Ulcerative colitis, unspecified, without complications 0 2 Esperanza PHOTOGRAPH FINISHER Suzanne. [address] [facility], [address], [id number], [place]. tel:[phone] Olamide Calhoun NP. tel:[phone] erring Provider: Referral Self, USE FOR SELF REFERRALS. [facility], [address] [address], [place], [address], [place] tel:[phone] [facility] Ulcerative colitis, unspecified, without complications Aug-0 2 Esperanza NEIL Suzanne. [address] [facility], [address], [id number], [place]. tel:[phone] Olamide Calhoun NP. tel:[phone] erring Provider: Referral Self, USE FOR SELF REFERRALS. [facility], [address] [address], [place], [address], [place] tel:[phone] [facility] GI Symptoms or Concerns (chief complaint) Ulcerative colitis, unspecified, without complications Dietary counseling and surveillance 2 Ashly Santos. [address] [facility], [place] [address], [place], [place], [address], [place]. [phone] Olamide Calhoun NP. tel:[phone] erring Provider: Olamide Calhoun NP M, [address] [place], [address]. tel:[phone] [facility], [address] [address], [place], [address], [place] tel:[phone] [facility] No Information 2 Israel Montano. [address], [id number], [place]. tel:[phone] Established Level 4 [facility], [address] [address], [place], [address], [place] tel:[phone] [facility] GI Symptoms or Concerns (chief complaint)A dditional Narrative (chief complaint) Ulcerative colitis, unspecified, without complications 1 Esperanza Palacios. [address], [id number], [place]. [phone] Olamide Calhoun NP. tel:[phone] erring Provider: Olamide Calhoun NP M, [address] [place], [address]. tel:[phone] [facility], [address] [address], [place], [address], [place] tel:[phone] [facility] No Information 1 Esperanza Palacios. [address] [facility], [facility] [address], [place], [address], [place]. tel:[phone] [facility], [address] [address], [place], [address], [place] tel:[phone] [facility] Ulcerative colitis, unspecified, without complications 1 Esperanza NEIL Suzanne. [address], [id number], [place]. tel:[phone] Olamide Calhoun NP. tel:[phone] erring Provider: Referral Self, USE FOR SELF REFERRALS. [facility], [address] [address], [place], [address], [place] tel:[phone] [facility] Ulcerative colitis, unspecified, without complications 1 Esperanza NEIL Suzanne. [address], [id number], [place]. tel:[phone] Established Level 4 [facility], [address] [address], [place], [address], [place] tel:[phone] [facility] GI Symptoms or Concerns (chief complaint)A dditional Narrative (chief complaint) Ulcerative colitis, unspecified, without complications 1 Esperanza NEIL Suzanne. [address], [id number], [place]. tel:[phone] Olamide Calhoun NP. tel:[phone] erring Provider: Referral Self, USE FOR SELF REFERRALS. [facility], [address] [address], [place], [address], [place] tel:[phone] [facility] No Information 1 Esperanza NEIL Suzanne. [address], [id number], [place]. tel:[phone] Offic/outpt E&m Estab [facility], [address] [address], [place], [address], [place] tel:[phone] [facility] Additional Narrative (chief complaint) Ulcerative colitis, unspecified, without complications 2 1 Esperanza Palacios. [address] [place] [address], [id number], [place]. tel:[phone] Olamide Calhoun NP. tel:[phone] erring Provider: Olamide Calhoun NP M, [address] [place], [address]. tel:[phone] Established Level 3 [facility], [address] [address], [facility], [place], [address], [place] tel:[phone] [facility] follow up of (chief complaint)A dditional Narrative (chief complaint)C omment (chief complaint) Ulcerative colitis, unspecified, without complications November-0 1 Esperanza Palacios. [address] [place] [address], [id number], [place]. tel:[phone] Olamide Calhoun NP. tel:[phone] erring Provider: Olamide Calhoun NP M, [address], [place], [address]. tel:[phone] [facility], [address] [address], [facility], [place], [address], [place] tel:[phone] Infusion [place] Ulcerative colitis, unspecified, without complications November-0 1 Jayda Grey. [address] [place] [address], [id number], [place]. tel:[phone] Olamide Calhoun NP. tel:[phone] erring Provider: Referral Self, USE FOR SELF REFERRALS. [facility], [address] [address], [facility], [address], [place] tel:[phone] [facility] No Information November-0 1 Esperanza Palacios. [address] [place] [address], [id number], [place]. tel:[phone] Olamide Calhoun NP. tel:[phone] [facility], [address] [address], [place], [address], [place] tel:[phone] [facility] No Information Apr-2 1 Esperanza Palacios. [address] [facility], [facility] [address], [place], [address], [place]. tel:[phone] Olamide Calhoun NP. tel:[phone] erring Provider: Referral Self, USE FOR SELF REFERRALS. [facility], [address] [address], [place], [address], [place] tel:[phone] [facility] Ulcerative colitis, unspecified, without complications Apr- 1 Esperanza NEIL Suzanne. [address] [facility], [address], [id number], [place]. tel:[phone] Olamide Calhoun NP. tel:[phone] [facility], [address] [address], [place], [id number], [place] tel:[phone] [facility] [place] Ulcerative colitis, unspecified, without complications Apr-0 1 Matias Henley. [address] [facility], [facility] [address], [place], [id number], [place]. tel:[phone] Olamide Calhoun NP. tel:[phone] erring Provider: Referral Self, USE FOR SELF REFERRALS. [facility], [address] [address], [place], [id number], [place] tel:[phone] [facility] Ulcerative colitis, unspecified, without complications Apr-0 1 Esperanza NEIL Suzanne. [address] [place] [address] [address], [place], [id number], [place]. tel:[phone] Olamide Calhoun NP. tel:[phone] erring Provider: Referral Self, USE FOR SELF REFERRALS. [facility], [address] [address], [place], [id number], [place] tel:[phone] [facility] Ulcerative colitis, unspecified, without complications 1 Esperanza Palacios. [address] [place] [address], [id number], [place]. tel:[phone] Referring Provider: Suzanne Mata NP, [address] [facility] [address], [place], [address] . tel:[phone] [facility], [address] [address], [place], [id number], [place] tel:[phone] [facility] Ulcerative colitis, unspecified, without complications 1 Froylan Cespedes. [address] [place] [address], [id number], [place]. tel:[phone] Olamide Calhoun NP. tel:[phone] erring Provider: Referral Self, USE FOR SELF REFERRALS. [facility], [address] [address], [place], [id number], [place] tel:[phone] [facility] [place] Ulcerative colitis, unspecified, without complications 1 Bisi Sharpe. [address] [place] [address], [address], [id number], [place]. tel:[phone] Olamide Calhoun NP. tel:[phone] erring Provider: Referral Self, USE FOR SELF REFERRALS. [facility], [address] [address], [place], [id number], [place] tel:[phone] [facility] [place] Ulcerative colitis, unspecified, without complications 1 Jeet Nair. [address] [place] [address], [address], [id number], [place]. tel:[phone] Olamide Calhoun NP. tel:[phone] erring Provider: Olamide Calhoun NP M, [address] [facility], [place], [address]. tel:[phone] Established Level 3 [facility], [address] [address], [place], [address], [place] tel:[phone] [facility] GI Symptoms or Concerns (chief complaint) Ulcerative colitis, unspecified, without complications 1 Esperanza Palacios. [address] [facility], [address], [id number], [place]. tel:[phone] Olamide Calhoun NP. [phone] erring Provider: Olamide Calhoun NP M, [address] [place], [address]. tel:[phone] [facility], [address] [address], [place], [id number], [place] tel:[phone] [facility] Ulcerative colitis, unspecified, without complications Encounter for screening for malignant neoplasm of colonUlcerati ve colitis, unspecified, without complications 0 No Information Olamide Calhoun NP. tel:[phone] erring Provider: Olamide Calhoun NP M, [address] [place], [address]. tel:[phone] [facility], [address] [address], [place], [id number], [place] tel:[phone] [facility] Ulcerative colitis, unspecified, without complications 0 0 Esperanza Henley [address], [id number], [place]. tel:[phone] [facility], [address] [address], [place], [id number], [place] tel:[phone] [facility] [place] Ulcerative colitis, unspecified, without complications 0 Franki Cabrera. [address], [id number], [place]. tel:[phone] Referring Provider: Referral Self, USE FOR SELF REFERRALS. [facility], [address] [address], [place], [id number], [place] tel:[phone] [facility] Ulcerative colitis, unspecified, without complications May- 0 Esperanza NEIL Suzanne. [address] [facility], [facility] [address], [place], [place], [id number], [place]. tel:[phone] Referring Provider: Olamide Peterson, [address] [place], [address]. tel:[phone] [facility], [address] [address], [place], [address], [place] tel:[phone] [facility] Ulcerative colitis in pediatric patient May- 0 Esperanza PHOTOGRAPH FINISHER Suzanne. [address] [facility], [facility] [address], [place], [id number], [place]. tel:[phone] [facility], [address] [address], [place], [id number], [place] tel:[phone] [facility] Ulcerative colitis in pediatric patient May- 0 Esperanza NEIL Suzanne. [address] [facility], [facility] [address], [place], [id number], [place]. tel:[phone] Offic/outpt E&m Estab Low-mod [facility], [address] [address], [place], [address], [place] tel:[phone] [facility] GI Symptoms or Concerns (chief complaint) Ulcerative colitis in pediatric patient May- 0 Esperanza NEIL Suzanne. [address] [facility], [facility] [address], [place], [address], [place]. tel:[phone] Referring Provider: Referral Self, USE FOR SELF REFERRALS. [facility], [address] [address], [place], [address], [place] tel:[phone] [facility] No Information 0 Esperanza NEIL Suzanne. [address] [facility], [facility] [address], [place], [id number], [place]. tel:[phone] New Level 3 or 30-44 min [facility], [address] [address], [place], [address], [place] tel:[phone] [facility] Comment (chief complaint) Ulcerative colitis in pediatric patient Sep- 0 Esperanza Palacios. [address] [facility], [facility] [address], [place], [place], [id number], [place]. tel:[phone] Referring Provider: Olamide Calhoun NP M, [address] [facility], [place], [address]. tel:[phone] [facility], [address] [address], [place], [place], [address], [place] tel:[phone] [facility] No Information Sep- 0 Israel Montano. [address] [facility], [facility] [address], [place], [place], [address], [place]. tel:[phone] Family History Family Member Type Diagnosis Age At Onset Mother Problem (finding) Alive and well Mother Problem (finding) Asthma Sister Problem (finding) Alive and well Mother Problem (finding) Diverticular disease Father Problem (finding) Alive and well Immunizations Vaccine Date Status Comments tetanus toxoid, reduced diphtheria toxoid, and acellular pertussis vaccine, adsorbed administered Note: [facility] b i-directional interface ; Source: Other Registry SARS-COV-2 (COVID-19) vaccin e, mRNA, spike protein, LNP, preservative free, 50 mcg/0.5 mL dose administered Note: [facility] bi-direct ional interface ; Source: Other Registry Influenza, split virus, trivalent, injectable, preservative free administered Note: [facility] bi-direct ional interface ; Source: Other Registry Engerix-B administered Note: [facility] bi-d irectional interface ; Source: Other Registry SARS-COV-2 (COVID-19) vaccin e, mRNA, spike protein, LNP, preservative free, aubrye-sucrose, 30 mcg/0.3 mL dose administered Note: [facility] bi-direct ional interface ; Source: Other Registry Influenza, recombinant, quadrivalent, injectable, preservative free administered Note: [facility] bi-direct ional interface ; Source: Other Registry Pneumococcal conjugate vacci ne 20-valent (PCV20), polysaccharide [id number] conjugate, adjuvant, preservative free administered Note: [facility] bi-direct ional interface ; Source: Other Registry zoster vaccine recombinant administered N ote: [facility] bi-directional interface ; Source: Other Registry Afluria Qd administered Note: M [facility] bi-directional interface ; Source: Other Registry SARS-COV-2 (COVID-19) vaccin e, mRNA, spike protein, LNP, preservative free, aubrey-sucrose, 30 mcg/0.3 mL dose administered Note: [facility] bi-direct ional interface ; Source: Other Registry SARS-COV-2 (COVID-19) vaccin e, mRNA, spike protein, LNP, bivalent, preservative free, 30 mcg/0.3 mL dose, aubrey-sucrose formulation administered Note: [facility] bi-direct ional interface ; Source: Other Registry SARS-COV-2 (COVID-19) vaccin e, mRNA, spike protein, LNP, bivalent booster, preservative free, 30 mcg/0.3 mL dose, aubrey-sucrose formulation administered Note: [facility] bi-d irectional interface ; Source: Other Registry Influenza, Madin [place] Canin e Kidney, subunit, quadrivalent, injectable, preservative free administered Note: [facility] bi-directional interface ; Source: Other Registry Influenza, injectable, Madin [place] Canine Kidney, preservative free, quadrivalent administered Note: [facility] bi-direct ional interface ; Source: Other Registry SARS-COV-2 (COVID-19) vaccin e, mRNA, spike protein, LNP, preservative free, 30 mcg/0.3mL dose administered Note: [facility] bi-direct ional interface ; Source: Other Registry Afluria Qd administered Note: M [facility] bi-directional interface ; Source: Other Registry SARS-COV-2 (COVID-19) vaccin e, mRNA, spike protein, LNP, preservative free, 30 mcg/0.3mL dose administered Note: [facility] bi-direct ional interface ; Source: Other Registry SARS-COV-2 (COVID-19) vaccin e, mRNA, spike protein, LNP, preservative free, 30 mcg/0.3mL dose administered Note: [facility] bi-direct ional interface ; Source: Other Registry Influenza, Madin [place] Canin e Kidney, subunit, quadrivalent, injectable, preservative free administered Note: [facility] bi-directional interface ; Source: Other Registry Influenza, injectable, Madin [place] Canine Kidney, preservative free, quadrivalent administered Note: [facility] bi-direct ional interface ; Source: Other Registry Energix Pediatric administered Note: [facility] bi-directional interface ; Source: Other Registry Pneumovax 23 administered Note: [facility] bi-d irectional interface ; Source: Other Registry meningococcal polysaccharide (groups A, C, Y and W-135) diphtheria toxoid conjugate vaccine (MCV4P) administered Note: [facility] bi-direct ional interface ; Source: Other Registry Afluria Qd administered Note: M [facility] bi-directional interface ; Source: Other Registry Afluria Qd administered Note: M [facility] bi-directional interface ; Source: Other Registry Fluzone Quad 6mo or older administered Note: [facility] bi-direct ional interface ; Source: Other Registry Human Papillomavirus 9-kody t vaccine administered Note: [facility] bi-direct ional interface ; Source: Other Registry Influenza, split virus, trivalent, injectable, preservative free administered Note: [facility] bi-direct ional interface ; Source: Other Registry Influenza, seasonal, injecta ble, preservative free administered Note: [facility] bi-direct ional interface ; Source: Other Registry Human Papillomavirus 9-kody t vaccine administered Note: [facility] bi-direct ional interface ; Source: Other Registry Afluria Qd administered Note: M [facility] bi-directional interface ; Source: Other Registry Afluria Qd administered Note: M II bi-directional interface ; Source: Other Registry Fluzone Quad 6mo or older [id number] administered Note: [facility] bi-direct ional interface ; Source: Other Registry meningococcal polysaccharide (groups A, C, Y and W-135) diphtheria toxoid conjugate vaccine (MCV4P) administered Note: [facility] bi-direct ional interface ; Source: Other Registry tetanus toxoid, reduced diphtheria toxoid, and acellular pertussis vaccine, adsorbed administered Note: [facility] b i-directional interface ; Source: Other Registry Influenza, live, quadrivalen t, intranasal administered Note: [facility] bi-direct ional interface ; Source: Other Registry influenza, live, intranasal, quadrivalent administered Note: [facility] bi-direct ional interface ; Source: Other Registry Influenza, live, quadrivalen t, intranasal administered Note: [facility] bi-direct ional interface ; Source: Other Registry influenza, live, intranasal, quadrivalent administered Note: [facility] bi-direct ional interface ; Source: Other Registry Influenza, split virus, trivalent, injectable, preservative free administered Note: [facility] bi-direct ional interface ; Source: Other Registry Influenza, seasonal, injecta ble, preservative free administered Note: [facility] bi-direct ional interface ; Source: Other Registry Influenza, split virus, trivalent, injectable, preservative free administered Note: [facility] bi-direct ional interface ; Source: Other Registry Influenza, seasonal, injecta ble, preservative free administered Note: [facility] bi-direct ional interface ; Source: Other Registry diphtheria, tetanus toxoids and acellular pertussis vaccine administered Note: [facility] b i-directional interface ; Source: Other Registry Pneumovax administered Note: [facility] bi-d irectional interface ; Source: Other Registry Haemophilus influenzae type b vaccine, PRP-T conjugate administered Note: [facility] bi-d irectional interface ; Source: Other Registry Influenza, split virus, trivalent, injectable, preservative free administered Note: [facility] bi-direct ional interface ; Source: Other Registry Influenza, seasonal, injecta ble, preservative free administered Note: [facility] bi-direct ional interface ; Source: Other Registry varicella virus vaccine administered Note : [facility] bi-directional interface ; Source: Other Registry measles, mumps and rubella v irus vaccine administered Note: [facility] bi-direct ional interface ; Source: Other Registry Influenza, split virus, trivalent, injectable, contains preservative administered Note: [facility] bi-direct ional interface ; Source: Other Registry Influenza, seasonal, injectable administe red Note: [facility] bi- directional interface ; Source: Other Registry Pneumovax administered Note: [facility] bi-d irectional interface ; Source: Other Registry DTaP-hepatitis B and poliovi jasbir vaccine administered Note: [facility] bi-direct ional interface ; Source: Other Registry Pneumovax administered Note: [facility] bi-d irectional interface ; Source: Other Registry Haemophilus influenzae type b vaccine, PRP-T conjugate administered Note: [facility] bi-d irectional interface ; Source: Other Registry Haemophilus influenzae type b vaccine, PRP-T conjugate administered Note: [facility] bi-d irectional interface ; Source: Other Registry DTaP-hepatitis B and poliovi jasbir vaccine administered Note: [facility] bi-direct ional interface ; Source: Other Registry Pneumovax administered Note: [facility] bi-d irectional interface ; Source: Other Registry DTaP-hepatitis B and poliovi jasbir vaccine administered Note: [facility] bi-direct ional interface ; Source: Other Registry Haemophilus influenzae type b vaccine, PRP-T conjugate administered Note: [facility] bi-d irectional interface ; Source: Other Registry Payers Payer name Insurance type Covered green party ID Authoriza tidaren(s) [facility] CI [id number] [facility] CI [id number] Social History Type Description Quantity Date Captured Comments Alcohol Use Details Unknown Caffeine Use Details Unknown Tobacco Use Status No Information Smoking Status No Information Sex Female Chief Complaint And Reason For Visit No Information Reason For Referral Reason For Referral No Information Plan Of Treatment Date Type Action Status Goal Smoking status. Due on due Goal Prevnar 20 due Goal HPV (3rd) due Goal Herpes Zoster - Shingrix (2n d) due Goal Hep B Vaccine (1st) due Goal Colonoscopy. Due on 024 due Goal HPV (2nd) due Goal Influenza. Due on due Goal Hep A Vaccine (1st) due Goal Cervical PAP smear. Due on N due Goal Hep B Vaccine (2nd) due Goal Vitamin D, 25-Hydroxy. Due o n due Goal HPV (1st) due Goal DEXA Bone Densit y Study. Due on due Goal Herpes Zoster - Shingrix (1st). Due on due Goal Hep A Vaccine (2nd) due Goal Tdap. Due on due Goal Dermatology - Sk in Screening. Due on due Goal HPV (3rd) due Goal Hep A Vaccine (1st) due Goal Tdap. Due on due Goal HPV (1st) due Goal Influenza. Due on due Goal Prevnar 20 due Goal Hep B Vaccine (2nd) due Goal HPV (2nd) due Goal Vitamin D, 25-Hydroxy. Due o n due Goal Hep A Vaccine (2nd) due Goal Smoking status. Due on due Goal Herpes Zoster - Shingrix (2n d) due Goal Colonoscopy. Due on due Goal DEXA Bone Densit y Study. Due on due Goal Herpes Zoster - Shingrix (1st). Due on due Goal Hep B Vaccine (1st) due Goal Cervical PAP smear. Due on O due Goal Dermatology - Sk in Screening. Due on due Goal DEXA Bone Densit y Study. Due on due Goal Hep A Vaccine (2nd) due Goal HPV (2nd) due Goal Dermatology - Sk in Screening. Due on due Goal Cervical PAP smear. Due on O due Goal HPV (1st) due Goal Prevnar 20 due Goal Colonoscopy. Due on due Goal Hep B Vaccine (2nd) due Goal Herpes Zoster - Shingrix (2n d) due Goal Vitamin D, 25-Hydroxy. Due o n due Goal Tdap. Due on due Goal Herpes Zoster - Shingrix (1st). Due on due Goal Smoking status. Due on due Goal Hep A Vaccine (1st) due Goal HPV (3rd) due Goal Influenza. Due on due Goal Hep B Vaccine (1st) due Goal Hep A Vaccine (1st) due Goal Dermatology - Sk in Screening. Due on due Goal Vitamin D, 25-Hydroxy. Due o n due Goal HPV (3rd) due Goal DEXA Bone Densit y Study. Due on due Goal Colonoscopy. Due on due Goal Influenza. Due on due Goal Hep B Vaccine (1st) due Goal Smoking status. Due on due Goal Hep B Vaccine (2nd) due Goal Herpes Zoster - Shingrix (1st). Due on due Goal Herpes Zoster - Shingrix (2n d) due Goal Tdap. Due on due Goal Cervical PAP smear. Due on due Goal Hep A Vaccine (2nd) due Goal HPV (2nd) due Goal HPV (1st) due Goal Prevnar 20 due Goal Colonoscopy. Due on due Goal Hep B Vaccine (1st) due Goal Vitamin D, 25-Hydroxy. Due o n due Goal Tdap. Due on due Goal Herpes Zoster - Shingrix (1st). Due on due Goal Cervical PAP smear. Due on due Goal HPV (2nd) due Goal Hep A Vaccine (2nd) due Goal HPV (1st) due Goal Smoking status. Due on due Goal Dermatology - Sk in Screening. Due on due Goal Hep B Vaccine (2nd) due Goal HPV (3rd) due Goal Herpes Zoster - Shingrix (2n d) due Goal DEXA Bone Densit y Study. Due on due Goal Influenza. Due on due Goal Prevnar 20 due Goal Hep A Vaccine (1st) due Goal Hep A Vaccine (1st) due Goal Vitamin D, 25-Hydroxy. Due o n due Goal DEXA Bone Densit y Study. Due on due Goal Hep B Vaccine (1st) due Goal Cervical PAP smear. Due on S due Goal HPV (2nd) due Goal Hep A Vaccine (2nd) due Goal HPV (1st) due Goal Herpes Zoster - Shingrix (2n d) due Goal Hep B Vaccine (2nd) due Goal HPV (3rd) due Goal Influenza. Due on due Goal Colonoscopy. Due on due Goal Dermatology - Sk in Screening. Due on due Goal Tdap. Due on due Goal Prevnar 20 due Goal Smoking status. Due on due Goal Herpes Zoster - Shingrix (1st). Due on due Goal HPV (2nd) due Goal Smoking status. Due on due Goal Hep A Vaccine (1st) due Goal Colonoscopy. Due on due Goal Prevnar 20 due Goal Herpes Zoster - Shingrix (2n d) due Goal Herpes Zoster - Shingrix (1st). Due on due Goal Vitamin D, 25-Hydroxy. Due o n due Goal Hep A Vaccine (2nd) due Goal HPV (3rd) due Goal Tdap. Due on due Goal Influenza. Due on due Goal Hep B Vaccine (2nd) due Goal HPV (1st) due Goal Cervical PAP smear. Due on due Goal Hep B Vaccine (1st) due Goal Dermatology - Sk in Screening. Due on due Goal DEXA Bone Densit y Study. Due on due Goal Hep A Vaccine (1st) due Goal Hep B Vaccine (2nd) due Goal Colonoscopy. Due on due Goal Vitamin D, 25-Hydroxy. Due o n due Goal DEXA Bone Densit y Study. Due on due Goal Herpes Zoster - Shingrix (2n d) due Goal Prevnar 20 due Goal Influenza. Due on due Goal HPV (3rd) due Goal Dermatology - Sk in Screening. Due on due Goal HPV (2nd) due Goal HPV (1st) due Goal Hep A Vaccine (2nd) due Goal Herpes Zoster - Shingrix (1st). Due on due Goal Hep B Vaccine (1st) due Goal Smoking status. Due on due Goal Tdap. Due on due Goal Cervical PAP smear. Due on M due Goal Colonoscopy. Due on due Goal HPV (1st) due Goal Hep A Vaccine (2nd) due Goal Herpes Zoster - Shingrix (1st). Due on due Goal Cervical PAP smear. Due on A due Goal Prevnar 20 due Goal HPV (2nd) due Goal Herpes Zoster - Shingrix (2n d) due Goal Influenza. Due on due Goal Dermatology - Sk in Screening. Due on due Goal HPV (3rd) due Goal Tdap. Due on due Goal Smoking status. Due on due Goal Hep B Vaccine (2nd) due Goal DEXA Bone Densit y Study. Due on due Goal Vitamin D, 25-Hydroxy. Due o n due Goal Hep B Vaccine (1st) due Goal Hep A Vaccine (1st) due Goal HPV (3rd) due Goal Herpes Zoster - Shingrix (1st). Due on due Goal Colonoscopy. Due on due Goal Dermatology - Sk in Screening. Due on due Goal HPV (2nd) due Goal Tdap. Due on due Goal Smoking status. Due on due Goal Hep B Vaccine (1st) due Goal Influenza. Due on 5 due Goal Prevnar 20 due Goal Hep A Vaccine (1st) due Goal Herpes Zoster - Shingrix (2n d) due Goal HPV (1st) due Goal Vitamin D, 25-Hydroxy. Due o n due Goal Cervical PAP smear. Due on A due Goal DEXA Bone Densit y Study. Due on due Goal Hep A Vaccine (2nd) due Goal Hep B Vaccine (2nd) due Goal Hep A Vaccine (2nd) due Goal HPV (2nd) due Goal HPV (3rd) due Goal Tdap. Due on due Goal HPV (1st) due Goal Hep B Vaccine (1st) due Goal Dermatology - Sk in Screening. Due on due Goal Cervical PAP smear. Due on due Goal Hep A Vaccine (1st) due Goal Colonoscopy. Due on 024 due Goal Prevnar 20 due Goal Influenza. Due on 5 due Goal DEXA Bone Densit y Study. Due on due Goal Smoking status. Due on due Goal Vitamin D, 25-Hydroxy. Due o n due Goal Herpes Zoster - Shingrix (1st). Due on due Goal Herpes Zoster - Shingrix (2n d) due Goal Hep B Vaccine (2nd) due Goal Hep B Vaccine (1st) due Goal HPV (2nd) due Goal Herpes Zoster - Shingrix (1st). Due on due Goal Hep B Vaccine (2nd) due Goal Hep A Vaccine (2nd) due Goal DEXA Bone Densit y Study. Due on due Goal Herpes Zoster - Shingrix (2n d) due Goal Influenza. Due on due Goal Vitamin D, 25-Hydroxy. Due o n due Goal HPV (3rd) due Goal Prevnar 20 due Goal Colonoscopy. Due on due Goal Tdap. Due on due Goal Dermatology - Sk in Screening. Due on due Goal HPV (1st) due Goal Smoking status. Due on due Goal Cervical PAP smear. Due on due Goal Hep A Vaccine (1st) due Goal Prevnar 20 due Goal Colonoscopy. Due on due Goal Cervical PAP smear. Due on due Goal Dermatology - Sk in Screening. Due on due Goal Herpes Zoster - Shingrix (1st). Due on due Goal Influenza. Due on due Goal Hep A Vaccine (2nd) due Goal Hep B Vaccine (1st) due Goal Herpes Zoster - Shingrix (2n d) due Goal HPV (1st) due Goal Hep A Vaccine (1st) due Goal Smoking status. Due on due Goal Hep B Vaccine (2nd) due Goal HPV (2nd) due Goal DEXA Bone Densit y Study. Due on due Goal Tdap. Due on due Goal Vitamin D, 25-Hydroxy. Due o n due Goal HPV (3rd) due Goal HPV (2nd) due Goal Vitamin D, 25-Hydroxy. Due o n due Goal Tdap. Due on due Goal HPV (3rd) due Goal Dermatology - Sk in Screening. Due on due Goal DEXA Bone Densit y Study. Due on due Goal Herpes Zoster - Shingrix (1st). Due on due Goal Hep A Vaccine (2nd) due Goal Prevnar 20 due Goal Influenza. Due on due Goal Smoking status. Due on due Goal Colonoscopy. Due on due Goal Hep B Vaccine (2nd) due Goal HPV (1st) due Goal Cervical PAP smear. Due on due Goal Hep B Vaccine (1st) due Goal Hep A Vaccine (1st) due Goal Herpes Zoster - Shingrix (2n d) due Goal Prevnar 20 due Goal Tdap. Due on due Goal Hep B Vaccine (2nd) due Goal Colonoscopy. Due on due Goal Herpes Zoster - Shingrix (1st). Due on due Goal Herpes Zoster - Shingrix (2n d) due Goal Hep A Vaccine (2nd) due Goal DEXA Bone Densit y Study. Due on due Goal Hep B Vaccine (1st) due Goal Influenza. Due on due Goal HPV (2nd) due Goal Cervical PAP smear. Due on due Goal Hep A Vaccine (1st) due Goal Smoking status. Due on due Goal Dermatology - Sk in Screening. Due on due Goal Vitamin D, 25-Hydroxy. Due o n due Goal HPV (1st) due Goal HPV (3rd) due Goal Hep A Vaccine (2nd) due Goal DEXA Bone Densit y Study. Due on due Goal Hep B Vaccine (1st) due Goal Hep A Vaccine (1st) due Goal Herpes Zoster - Shingrix (2n d) due Goal HPV (1st) due Goal Cervical PAP smear. Due on due Goal Vitamin D, 25-Hydroxy. Due o n due Goal HPV (2nd) due Goal Tdap. Due on due Goal HPV (3rd) due Goal Influenza. Due on due Goal Prevnar 20 due Goal Dermatology - Sk in Screening. Due on due Goal Herpes Zoster - Shingrix (1st). Due on due Goal Smoking status. Due on due Goal Colonoscopy. Due on due Goal Hep B Vaccine (2nd) due Goal HPV (3rd) due Goal DEXA Bone Densit y Study. Due on due Goal Hep B Vaccine (2nd) due Goal HPV (1st) due Goal Hep B Vaccine (1st). Due on due Goal Smoking status. Due on due Goal Herpes Zoster - Shingrix (1st). Due on due Goal Tdap. Due on due Goal Vitamin D, 25-Hydroxy. Due o n due Goal Dermatology - Sk in Screening. Due on due Goal Influenza. Due on due Goal Hep A Vaccine (1st). Due on due Goal Cervical PAP smear. Due on due Goal Prevnar 20 due Goal HPV (2nd) due Goal Hep A Vaccine (2nd) due Goal Herpes Zoster - Shingrix (2n d) due Goal Colonoscopy. Due on due Goal DEXA Bone Densit y Study. Due on due Goal Hep B Vaccine (2nd) due Goal Hep A Vaccine (2nd) due Goal Dermatology - Sk in Screening. Due on due Goal Vitamin D, 25-Hydroxy. Due o n due Goal Herpes Zoster - Shingrix (1st). Due on due Goal Influenza. Due on due Goal Smoking status. Due on due Goal Colonoscopy. Due on due Goal Tdap. Due on due Goal HPV (3rd) due Goal HPV (1st) due Goal Hep A Vaccine (1st). Due on due Goal Herpes Zoster - Shingrix (2n d) due Goal Hep B Vaccine (1st). Due on due Goal Prevnar 20 due Goal HPV (2nd) due Goal HPV (2nd) due Goal HPV (1st) due Goal Herpes Zoster - Shingrix (1st). Due on due Goal Prevnar 20 due Goal Vitamin D, 25-Hydroxy. Due o n due Goal Hep A Vaccine (2nd) due Goal Tdap. Due on due Goal Hep B Vaccine (1st). Due on due Goal Influenza. Due on due Goal Hep B Vaccine (2nd) due Goal Dermatology - Sk in Screening. Due on due Goal Hep A Vaccine (1st). Due on due Goal DEXA Bone Densit y Study. Due on due Goal Herpes Zoster - Shingrix (2n d) due Goal Smoking status. Due on due Goal Colonoscopy. Due on due Goal HPV (3rd) due Goal HPV (3rd) due Goal Tdap. Due on due Goal DEXA Bone Densit y Study. Due on due Goal Herpes Zoster - Shingrix (1st). Due on due Goal Influenza. Due on due Goal Hep B Vaccine (1st). Due on due Goal Hep A Vaccine (2nd) due Goal Hep A Vaccine (1st). Due on due Goal Smoking status. Due on due Goal Hep B Vaccine (2nd) due Goal Colonoscopy. Due on due Goal HPV (2nd) due Goal Dermatology - Sk in Screening. Due on due Goal Vitamin D, 25-Hydroxy. Due o n due Goal HPV (1st) due Goal Herpes Zoster - Shingrix (2n d) due Goal Prevnar 20 due Goal Herpes Zoster - Shingrix (1st). Due on due Goal HPV (1st) due Goal Tdap. Due on due Goal Smoking status. Due on due Goal Colonoscopy. Due on due Goal Influenza. Due on due Goal HPV (3rd) due Goal Hep A Vaccine (2nd) due Goal Herpes Zoster - Shingrix (2n d) due Goal Hep B Vaccine (1st). Due on due Goal Prevnar 20 due Goal DEXA Bone Densit y Study. Due on due Goal HPV (2nd) due Goal Hep B Vaccine (2nd) due Goal Dermatology - Sk in Screening. Due on due Goal Vitamin D, 25-Hydroxy. Due o n due Goal Hep A Vaccine (1st). Due on due Goal Influenza. Due on due Goal Prevnar 20 due Goal DEXA Bone Densit y Study. Due on due Goal Hep A Vaccine (2nd) due Goal Hep B Vaccine (2nd) due Goal HPV (2nd) due Goal Hep B Vaccine (1st). Due on due Goal Smoking status. Due on due Goal Hep A Vaccine (1st). Due on due Goal HPV (1st) due Goal Dermatology - Sk in Screening. Due on due Goal Colonoscopy. Due on 024 due Goal HPV (3rd) due Goal Herpes Zoster - Shingrix (2n d) due Goal Herpes Zoster - Shingrix (1st). Due on due Goal Tdap. Due on due Goal Vitamin D, 25-Hydroxy. Due o n due Goal Hep B Vaccine (2nd) due Goal Vitamin D, 25-Hydroxy. Due o n due Goal Influenza. Due on due Goal DEXA Bone Densit y Study. Due on due Goal HPV (3rd) due Goal Hep A Vaccine (2nd) due Goal Prevnar 20 due Goal Herpes Zoster - Shingrix (2n d) due Goal HPV (1st) due Goal Tdap. Due on due Goal Herpes Zoster - Shingrix (1st). Due on due Goal HPV (2nd) due Goal Smoking status. Due on due Goal Hep A Vaccine (1st). Due on due Goal Dermatology - Sk in Screening. Due on due Goal Colonoscopy. Due on due Goal Hep B Vaccine (1st). Due on due Goal Colonoscopy. Due on 024 due Goal Prevnar 20 due Goal Hep A Vaccine (2nd) due Goal HPV (1st) due Goal Hep B Vaccine (2nd) due Goal HPV (3rd) due Goal Hep B Vaccine (1st). Due on due Goal Tdap. Due on due Goal Vitamin D, 25-Hydroxy. Due o n due Goal DEXA Bone Densit y Study. Due on due Goal Smoking status. Due on due Goal HPV (2nd) due Goal Dermatology - Sk in Screening. Due on due Goal Influenza. Due on due Goal Herpes Zoster - Shingrix (1st). Due on due Goal Herpes Zoster - Shingrix (2n d) due Goal Hep A Vaccine (1st). Due on due Goal Hep B Vaccine (2nd) due Goal Smoking status. Due on due Goal Tdap. Due on due Goal Dermatology - Sk in Screening. Due on due Goal Hep B Vaccine (1st). Due on due Goal Hep A Vaccine (2nd) due Goal HPV (3rd) due Goal DEXA Bone Densit y Study. Due on due Goal HPV (1st) due Goal Herpes Zoster - Shingrix (1st). Due on due Goal Herpes Zoster - Shingrix (2n d) due Goal Colonoscopy. Due on 024 due Goal HPV (2nd) due Goal Hep A Vaccine (1st). Due on due Goal Influenza. Due on due Goal Vitamin D, 25-Hydroxy. Due o n due Goal Prevnar 20 due Goal Hep B Vaccine (1st). Due on due Goal Tdap. Due on due Goal Hep B Vaccine (2nd) due Goal Prevnar 20 due Goal Dermatology - Sk in Screening. Due on due Goal Vitamin D, 25-Hydroxy. Due o n due Goal Influenza. Due on due Goal HPV (3rd) due Goal Smoking status. Due on due Goal Hep A Vaccine (2nd) due Goal HPV (2nd) due Goal Hep A Vaccine (1st). Due on due Goal Herpes Zoster - Shingrix (1st). Due on due Goal Herpes Zoster - Shingrix (2n d) due Goal HPV (1st) due Goal Colonoscopy. Due on due Goal DEXA Bone Densit y Study. Due on due Goal HPV (1st) due Goal Hep B Vaccine (2nd) due Goal Hep A Vaccine (1st). Due on due Goal HPV (3rd) due Goal Influenza. Due on due Goal Vitamin D, 25-Hydroxy. Due o n due Goal Tdap. Due on due Goal Dermatology - Sk in Screening. Due on due Goal Herpes Zoster - Shingrix (1st). Due on due Goal Herpes Zoster - Shingrix (2n d) due Goal Smoking status. Due on due Goal Colonoscopy. Due on due Goal DEXA Bone Densit y Study. Due on due Goal HPV (2nd) due Goal Prevnar 20 due Goal Hep B Vaccine (1st). Due on due Goal Hep A Vaccine (2nd) due Goal Influenza. Due on due Goal Hep B Vaccine (2nd) due Goal Hep A Vaccine (1st). Due on due Goal HPV (2nd) due Goal HPV (3rd) due Goal HPV (1st) due Goal Smoking status. Due on due Goal Dermatology - Sk in Screening. Due on due Goal Herpes Zoster - Shingrix (1st). Due on due Goal Vitamin D, 25-Hydroxy. Due o n due Goal Tdap. Due on due Goal Hep A Vaccine (2nd) due Goal Colonoscopy. Due on due Goal Prevnar 20 due Goal DEXA Bone Densit y Study. Due on due Goal Herpes Zoster - Shingrix (2n d) due Goal Hep B Vaccine (1st). Due on due Referral Ordered: referred to [employer] [facility], Low FODMAPs diet First Available Appointment date/timeframe: First Available ordered Referral Ordered: Vitamin D, 25-Hydroxy Appointment date/timeframe: First Available ordered Referral Ordered: Vedolizumab and Anti-Vedolizumab Antibody Appointment date/timeframe: 03/27/2022 ordered Referral Ordered: Stool Test Panel, Comprehensive Appointment date/timeframe: First Available ordered Referral Ordered: Hep B surface Ag Appointment date/timeframe: First Available ordered Referral Ordered: QuantiFERON TB Gold Plus Appointment date/timeframe: First Available ordered Referral Ordered: Flexible Sigmoidoscopy Appointment date/timeframe: 10/13/2021 ordered Appointment Milly Philip BOOKED Appointment [facility] BOOKED Appointment [facility] BOOKED Future Order: Lab Order Vitamin D, 25-Hydroxy ([id number]), Appointment on: , Collected on: , Sent on: Sent History Of Present Illness Encounter Date Complaint History Of Prese nt Illness Previous History Review 19 years old with ulcerative colitis. Currently doing well on Entyvio 300 mg every 4 weeks and mesalamine 4.8 g per day.No diarrhea, no joint pains, no skin rashes. She has not required any spasmolytics like dicyclomine or IBgard lately.She had a skin check, a benign mole was removed.She had a good blade groover in [place].IBD history.Ulcerative pancolitis diagnosed in 2018.Current medications Entyvio 300 mg every 4 weekly and mesalamine 4.8 g/day. Entyvio started in October 2021 as she had active disease.Previous medications: Remicade, Inflectra, Humira. Initial response to Remicade then switched to Inflectra, lost response, switched back to Remicade and did not have response, tried Humira with no response.Endoscopic evaluation.Colonoscopy on 06/27/2023 showing normal within the ileum. Mild erythema, Peres score 1 on colonoscopy. Left colon biopsies showing iync-[id number] active chronic colitis and inflammatory polyp in the rectum. The right colon appeared endoscopically normal.flexible sigmoidoscopy was on 10/13/2021 showing granularity in the descending colon, inflammation in the rectosigmoid area, showing inactive chronic colitis in the descending colon and mildly active colitis in the rectosigmoid colon.Fecal calprotectin was elevated to 954 in 2020 and was 189 in 2021. Entyvio level was 48 on 07/15/2023.Anti-vedolizumab level was 2.6, whereas her lab the 8 week level for to be therapeutic should be over 14, anti-vedolizumab antibody less than 25. 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 She has a female partner and is happy with her relationship.Received PCV 20 and shingrix in 06/29. GI Symptoms or Concerns GI Symptoms or Concerns This is a clinic visit for Milly for followup of ulcerative colitis. She tells me that her urgency has improved. She is having regular bowel movements. However, she experiences abdominal cramps and has about 3 times per week. And they do improve after having a bowel movement. She is currently on Entyvio 300 mg every 4 weeks and mesalamine 4.8 g per day.Colonoscopy on 06/27/2023 showing normal within the ileum. Mild erythema, Peres score 1 on colonoscopy. Left colon biopsies showing faha-[id number] active chronic colitis and inflammatory polyp in the rectum. The right colon appeared endoscopically normal.Previously, her fecal calprotectin was elevated to 954 in 2020 and was 189 in 2021. Entyvio level was 48 on 07/15/2023.She is planning to do an blade groover in [facility].She is still going to [employer] in environmental studies and statistics. She has a female partner and is happy with her relationship. 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 Subsequently, she tried Humira, did not have much response to that.Started on Entyvio in October of 2021 because of ongoing active disease.Last flexible sigmoidoscopy was on 10/13/2021 showing granularity in the descending colon, inflammation in the rectosigmoid area, showing inactive chronic colitis in the descending colon and mildly active colitis in the rectosigmoid colon.Labs on 01/13/2020 show fecal calprotectin of 189, hemoglobin of 10.7 on 04/09/2022 along with platelet count of 720,000, iron level of 25, and iron saturation 7%. Vitamin D level 20.8. Anti-vedolizumab level was 2.6, whereas her lab the 8 week level for to be therapeutic should be over 14, anti-vedolizumab antibody less than 25.Dicyclomine helps with her symptoms.She does not see a robust improvement of her symptoms right after the Entyvio infusion.Received PCV 20 and shingrix in 06/29. GI Symptoms or Concerns Previous History Review 18-year- old student at [employer], diagnosed with ulcerative pancolitis in 2018, currently on Entyvio 300 mg q.4 weekly.PREVIOUS MEDICATIONSShe was initially treated with Remicade and had a response to Remicade and then switched to Inflectra, lost the response and then switched back to Remicade and did not have that response. Subsequently, she tried Humira, did not have much response to that.Started on Entyvio in October of 2021 because of ongoing active disease.Last flexible sigmoidoscopy was on 10/13/2021 showing granularity in the descending colon, inflammation in the rectosigmoid area, showing inactive chronic colitis in the descending colon and mildly active colitis in the rectosigmoid colon.Labs on 01/13/2020 show fecal calprotectin of 189, hemoglobin of 10.7 on 04/09/2022 along with platelet count of 720,000, iron level of 25, and iron saturation 7%. Vitamin D level 20.8. Anti-vedolizumab level was 2.6, whereas her lab the 8 week level for to be therapeutic should be over 14, anti-vedolizumab antibody less than 25. GI Symptoms or Concerns The lissa leeann comes in here accompanied by her mother for followup of oquendo-ulcerative colitis (pancolitis). She is currently doing well on Entyvio, which was switched to 300 mg every 4 weekly on 05/11/2022 as her Entyvio level was 2.6.She has been doing well since the changed dose of Entyvio. She has upto 2 bowel movements per day. No bowel movement at night. The occasional abdominal cramps once per week. No diarrhea. No other issues.She is studying at [employer] in Environmental Studies and Statistics and Database. She continues to take mesalamine 1.2 g 4 pills per day.She regularly walks and skates on the weekend. GI Symptoms or Concerns This is a virtual visit for Milly Philip and her mother, [place], was also present for this visit.Patient had a recent clinic visit on 04/09/2002.An 16-year-old student at [employer], diagnosed with ulcerative pancolitis in 2019, currently on Entyvio 300 mg q.8 weekly.PREVIOUS MEDICATIONSShe was initially treated with Remicade and had a response to Remicade and then switched to Inflectra, lost the response and then switched back to Remicade and did not have that response. Subsequently, she tried Humira, did not have much response to that.Started on Entyvio in October of 2021 because of ongoing active disease.Last flexible sigmoidoscopy was on 10/13/2021 showing granularity in the descending colon, inflammation in the rectosigmoid area, showing inactive chronic colitis in the descending colon and mildly active colitis in the rectosigmoid colon.Labs on 01/13/2020 show fecal calprotectin of 189, hemoglobin of 10.7 on 04/09/2022 along with platelet coun GI Symptoms or Concerns This is an 16-year-old female with chronic ulcerative pancolitis diagnosed in 2018 at the [facility] currently on Entyvio every 8 weeks who presents with abdominal discomfort, and fecal urgency. Patient was transitioned to Entyvio in October of 2021 after findings ongoing inflammation in the sigmoid and rectum on flexible sigmoidoscopy. Biopsy revealed mildly active chronic colitis. Biopsy of the descending colon showed inactive chronic colitis. Initially she did notice some improvement in her stooling frequency on Entyvio. However since going to college in the fall she has had a few flares which include incontinence during the night. She reports upwards of 5-6 bowel movements during the day that can be loosely formed as well. Rarely is there blood in her stool. In February she was treated with a course of Uceris. She is currently on this medication. She notes some mild improvement but her symptoms still persist. She has had significant difficulty tolerating prednisone. Namely with worsening depression. She would like to avoid this medication if at all possible. She has tried dicyclomine 20 milligrams twice a day. She is also unclear this has been helpful. A fecal calprotectin was checked in January of 2022 which was increased at 189. Patient does not think that she would be able to do mesalamine or steroid enemas given her college dorm life. She does not have a private bathroom. Entyvio drug levels were checked just a week ago. Currently awaiting these results. Patient reports that she has been eating and drinking normally. Her weight has been stable since February per our records. She denies any fever, chills, nausea, vomiting, or hematochezia. No significant joint pain or vision changes. GI Symptoms or Concerns Milly is a 16-year-old female seen today via virtual visit for follow-up of ulcerative colitis. She is currently maintained on Entyvio 5mg/kg Q 8 weeks. Patient consented to being seen via virtual visit today. She was alone in a private place during our conversation. A total time of 35 minutes was spent today in record review, discussion with other healthcare professionals, coordination of care and documentation.Patient has been seen by our pediatric providers in the past for management of her ulcerative colitis.In review of her history, Milly transitioned to [facility] from [facility] soon after diagnosis of IBD in 2018. Therapies up to this point have included sulfasalazine, Remicade, Humira, Cortef enemas, 5-ASA enemas and short courses of prednisone. When she tried it transitioned her care to [facility] in 2018 she was on Remicade with inadequate results and subsequently transition to Humira. However, patient underwent flexible sigmoidoscopy in October 2021 significant for inflammation with erythema, friability and exudate in the rectosigmoid colon and a nodule in the rectum. Pathology revealed mildly active chronic colitis in the rectum and sigmoid colon. Rectal nodule biopsy consistent with inflammatory polyp. She was subsequently transitioned to Entyvio in October 2021 receiving her first did induction infusion on 10/24/2021. In review of laboratory testing, patient has had a persistently elevated fecal calprotectin since May 2020 however, most recent test in January 2022 did reveal that this level had increased significantly to 189. Her C-reactive protein was also noted to be normal at 2.Last QuantiFERON gold was completed in January 19, 2022 noted to be negative. CMP was drawn 01/19/2022 and found to be unremarkable. Hepatitis B surface antigen found to be negative at this time as well.Patient reports that since she started Entyvio in October she has not noticed a significant improvement of her symptoms. She continues to have 4 bowel movements daily with associated rectal bleeding and cramping. Cramping typically improves with a bowel movement but can last up to an hour afterwards. She typically has pain in the left lower abdomen. She notes her stools consist of both liquid and formed stool. She has not had any recent stool studies to check for infection. It appears that in the past she was taking Bentyl for the cramping but notes she did not believe this was helpful.Milly does not weigh herself regularly but notes that she does not believe she has lost any significant amount of weight. She reports her appetite has been good. Notes she did have a recent COVID-19 infection but denies any recent fevers or chills not associated with this. When patient was seen by Suzanne Huston in January she was given a 5-day course of prednisone and notes that this did help while she was taking it but after discontinuing symptoms worsened.She notes in the past she has not tolerated longer courses of prednisone as it led to worsening of her depression and increased suicidal ideation. She is not sure if she has ever tried oral budesonide.Denies any use of NSAIDs or tobacco. GI Symptoms or Concerns Milly is an 16-year-old who presents alone for a virtual visit today. She is here today for followup regarding her ulcerative colitis diagnosis.Milly transitioned here from the [facility] to our clinic soon after her diagnosis of inflammatory bowel disease in 2018. She was on Remicade at that point. We really were unable to get Remicade to work well for her and she had a repeat colonoscopy in 2019 with the results outlined below. We transitioned her to Humira, but this spring when she was continued to have significant symptoms despite adequate Humira levels, we repeated a colonoscopy and she still had mild active colitis. Therefore, we recently switched her to Entyvio. She has now had 3 Entyvio infusions and she reports she is uncertain how much Entyvio is benefitting her. She thinks she has less urgency with stooling, but she is having more abdominal pain. She feels it is more of a cramping sensation that can occur after eating. She has always been against utilizing prednisone as it causes her significant mood swings, but she utilized it at one point this spring when she was in [place], so that she had less symptoms. She felt that really helped her and questions whether she could take this again. We tried multiple different enemas and suppositories to treat her significant proctitis without benefit. Entocort also did not benefit her. She currently reports 5 to 6 bowel movements a day. She does sometimes have to wake early in the morning to pass stool, but she does not typically wake up overnight. She thinks she might see some blood in her stool every other day. She does feel that overall her mental and social status is very stable and in a good place. She will be attending college starting this fall. Previous History Review PAST HIS TORYDiagnosis is ulcerative pancolitis made at the [facility] in the fall.Treatment:After diagnosis, she was put on prednisone and switched to sulfasalazine. She was started on Remicade and when she did well, but when she had a switch off of name brand Remicade to Inflectra, she seemed to have increased symptoms. She was then put back on name brand Remicade with limited response. Does not like prednisone due to depression side effects. She has tried Cortenema in the past, but these were not overly beneficial. She does not have any interest in going back on sulfasalazine as she had difficulty swallowing this. Humira was started in November 2020-40mg every 2 weeks.Re-induction of Humira-06/27-then moved to 40mg weeklySwitched to Entyvio-10/27Procedures:-Endoscopy and colonoscopy in fall showed ulcerative pancolitis.-Colonoscopy done in June 2020 showed moderately active colitis in the sigmoid and rectal regions with the rest of the colon showing inactive colitis.Colonoscopy 10/27-mild active rectal sigmoid disease. Inactive colitis in descending colon. Inflammatory rectal polyp Imaging and testing:I do not know of any imaging that Milly has had at the [facility]. Calprotectin 10/26-954Her hepatitis B screening and QuantiFERON screening were negative on May 2020. Repeating 01/26Her last Remicade level was 26 with no antibody formation in May 2020.Humira level 08/29-14 with no antibody formation.The rest of Milly's past medical history is positive for anxiety and depression. She will be a Freshman at [employer] Fall 2021.FAMILY HISTORYNoncontributory. GI Symptoms or Concerns New Lissa ent Nutrition AssessmentAnthropometrics:healthy BMI, stable weightOther Supplements:occasional multivitaminFood and Exercise History:B: oatmeal or toast or smoothieL: salad or sandwich, yogurt, crackersD: tacos, spaghetti, etc. Snacks: granola barbevs: water, OJ, almond milkc/o cramps, diarrhea, frequent bowel movementsFor 1-2 months eliminated all dairy and egg based on a food sensitivity test she took, no improvement in symptoms. Estimated Energy and Nutrition Needs:25-30 kcal/kg1-1.5 gm/kg proteinNutrition Diagnosis:Food and nutrition related knowledge deficit related to healthy diet for IBD as evidenced by patient's request for information. Nutrition Discussion and Education:I met with Milly for virtual nutrition assessment and diet education. Milly has ulcerative colitis and has ongoing diarrhea and cramping. Her Humira dose was recently increased. She has stable and healthy BMI. She is on a regular diet. She did try to eliminate dairy and eggs for a few months but this did not improve her GI symptoms. She is wondering what she should be eating. I educated Milly on IBD in nutrition in the sense that we do not have a recommended diet at this time, other than to make healthy choices, avoid processed foods and added sugars, and avoid foods which trigger symptoms. She does consume a fair amount of fiber so I educated her on how this may be affecting her stooling. She could try lowering her fiber intake for a month or two to see if she feels better, however I suspect her symptoms are more related to her disease process and needing to optimize medical management. Our visit was cut short today since Milly was still at school, so I welcomed her to follow up with me in a few months and we can ensure she is eating a nourishing diet and managing food-related symptoms. Additional Narrative PAST HISTOR YDiagnosis is ulcerative pancolitis made at the [facility] in the fall of 2018.Treatment:After diagnosis, she was put on prednisone and switched to sulfasalazine. She was started on Remicade and when she did well, but when she had a switch off of name brand Remicade to Inflectra, she seemed to have increased symptoms. She was then put back on name brand Remicade with limited response. Does not like prednisone due to depression side effects. She has tried Cortenema in the past, but these were not overly beneficial. She does not have any interest in going back on sulfasalazine as she had difficulty swallowing this. Humira was started in November 2020-40mg every 2 weeks.Re-induction of Humira-06/27-then moved to 40mg weeklyProcedures:-Endoscopy and colonoscopy in fall showed ulcerative pancolitis.-Colonoscopy done in June 2020 showed moderately active colitis in the sigmoid and rectal regions with the rest of the colon showing inactive colitis.Imaging and testing: I do not know of any imaging that Milly has had at the [facility]. She had a calprotectin stool test done in May 2020 that was elevated at 540. Her hepatitis B screening and QuantiFERON screening were negative on May 2020. Her last Remicade level was 26 with no antibody formation in May 2020.Humira level 06/27- 1.3 with no antibodiesThe rest of Milly's past medical history is positive for anxiety and depression.FAMILY HISTORYNoncontributory. GI Symptoms or Concerns Milly is an 16-year-old who presents alone for a virtual visit today. She is here today for followup regarding her ulcerative colitis diagnosis.Milly reports that she does feel that she has made some improvement since we decided to go forward with re-induction of Humira therapy 2 weeks ago. When I last saw Milly in May 2021 after being on Humira for about 6 months, she was having a lot of increased diarrhea and frequency as well as some urgency. Her laboratory screening showed significant inflammation with CRP of 32 and sed rate of 70. Her Humira level was quite low at 1.3 with no antibody formation. We were able to get approval to do reintroduction of Humira and switched to 40 mg weekly dosing. Milly reports that she took the 160 mg dose of Humira about 8 days ago. She was going to wait for 2 weeks to take the next induction dosing. She does feel that the last 2 days her symptoms have increased. She had a good 4-day stint last week where she was only stooling once a GI Symptoms or Concerns Additional Narrative PAST HISTOR YDiagnosis is ulcerative pancolitis made at the [facility] in the fall.Treatment:After diagnosis, she was put on prednisone and switched to sulfasalazine. She was started on Remicade and when she did well, but when she had a switch off of name brand Remicade to Inflectra, she seemed to have increased symptoms. She was then put back on name brand Remicade and is currently getting 500 mg every 4 weeks. She has tried Cortenema in the past, but these were not overly beneficial. She does not have any interest in going back on sulfasalazine as she had difficulty swallowing this. Humira was started in November 2020-40mg every 2 weeks.Procedures:-Endoscopy and colonoscopy in fall showed ulcerative pancolitis.-Colonoscopy done in June 2020 showed moderately active colitis in the sigmoid and rectal regions with the rest of the colon showing inactive colitis.Imaging and testing: I do not know of any imaging that Milly has had at the [facility]. She had a calprotectin stool test done in May 2020 that was elevated at 540. Her hepatitis B screening and QuantiFERON screening were negative on May 2020. Her last Remicade level was 26 with no antibody formation in May 2020.The rest of Milly's past medical history is positive for anxiety and depression.FAMILY HISTORYNoncontributory. Additional Narrative Milly is a 15 year old girl with Ulcerative Colitis who is accompanied by her mom. Discussed Humira with patient and family and answered questions. The step by step process of administering Humira was both discussed and demonstrated with Milly and her mom today. RN demonstrated injection of the first 80 mg pen and Milly then administered the other 80 mg pen for a total of 160 mg for the day. Milly had no reaction to her medication. She was monitored in clinic for 15-20 minutes to observe for adverse reactions. Additional Narrative PAST MEDICA L HISTORY1. Diagnosis is ulcerative pancolitis made at the [facility] in the fall.2. Treatment.After diagnosis, she was put on prednisone and switched to sulfasalazine. She was started on Remicade and when she did well, but when she had a switch off of name brand Remicade to Inflectra, she seemed to have increased symptoms. She was then put back on name brand Remicade and is currently getting 500 mg every 4 weeks. She has tried Cortenema in the past, but these were not overly beneficial. She does not have any interest in going back on sulfasalazine as she had difficulty swallowing this.3. Procedures.Endoscopy and colonoscopy in fall showed ulcerative pancolitis.Colonoscopy done in June 2020 showed moderately active colitis in the sigmoid and rectal regions with the rest of the colon showing inactive colitis.4. Imaging and testing. I do not know of any imaging that Milly has had at the [facility]. She had a calprotectin stool test done in May 2020 that was elevated at 540. Her hepatitis B screening and QuantiFERON screening were negative on May 2020. Her last Remicade level was 26 with no antibody formation in May 2020.The rest of Milly's past medical history is positive for anxiety and depression.FAMILY HISTORYNoncontributory. Comment Milly is a 15-ye ar-old who presents for virtual visit with both parents. She is here today for followup regarding her ulcerative colitis diagnosis.Milly transitioned her care from the [facility] more specifically Dr. Melgar in March 2020. She has since been on Remicade 10 mg/kg as solo therapy for her ulcerative colitis. She had a repeat colonoscopy that showed significant rectal sigmoid disease and we trialed rectal medications, but this did not improve symptoms. Her Remicade level has been very adequate with no antibody presentation. She had an elevated calprotectin of 540. She also tried Uceris without much improvement in symptoms. She comes in today with an increase in symptoms. She states that she is now having 7+ stools per day. She is waking from sleep early in the morning to pass stool. She occasionally will see blood in her stool. She gets quite a bit of abdominal pain with the urgency. She does not feel much relief from this when she receives her GI Symptoms or Concerns Mlily is a 15-year-old who presents for a virtual visit today with her mother. She is here today for followup regarding her ulcerative colitis diagnosis.Milly was last seen in clinic approximately 2 months ago for transition of care from the [facility] to our facility for her diagnosis of ulcerative pancolitis. She previously was seen by Dr. Melgar at the [facility]. She has continued Remicade through our facility and we were able to get Remicade antibody and Remicade level screening done prior to her infusion at the end of May that revealed a very adequate Remicade level and no antibody formation. The rest of her laboratory work showed a normal hemoglobin and inflammatory markers that were normal. She did have a calprotectin stool test that was elevated at 540. She went on to have an endoscopy and a colonoscopy by Dr. Wan at the end of June 2020, and she was found to have moderately active disease in her sigmoid and rectal regions wh GI Symptoms or Concerns Milly is a 15-year-old who presents to clinic today for followup regarding ulcerative colitis diagnosis.Milly was initially seen through virtual visit in March 2020 to discuss transition of care for her diagnosis of ulcerative colitis. A lot was unknown about Milly during that visit and we needed to get records from her primary deadener, Dr. Yuriy Melgar at [facility]. Since her records are obtained, we have learned that Milly had ulcerative pancolitis that was diagnosed by endoscopy and colonoscopy in the fall. She was initially put on prednisone and switched to sulfasalazine. She started Remicade and was doing relatively well up until a few months ago. The family feels that the switch from name-brand Remicade to Inflectra caused her to have increased symptoms, and she was switched back to regular Remicade. She is currently getting Remicade 500 mg every 4 weeks. She has had 1 Remicade level that I can find that was 0.9 in December 2019 with Comment Milly is a 14-ye ar-old who presents for a virtual visit today with her mother. She is here today for evaluation of a diagnosis of ulcerative colitis and ongoing symptoms.Mom reports that Milly is followed by Dr. Melgar at the [facility]. I had very limited records from the [facility] prior to this visit. Milly initially started having symptoms of abdominal cramping and bloody stools in November 2017. She was seen at the [facility] by Dr. Shweta South, who performed a colonoscopy, and apparently mom reports that they were told the blood in her stool and cramping was related to too much ibuprofen use. When symptoms worsened a year later, they were seen by Dr. Melgar, who repeated a colonoscopy and she was diagnosed with ulcerative colitis. The family is not certain how much of her colon was involved with her initial diagnosis of ulcerative colitis. Mom believes that she was diagnosed around 1 year ago in 2019. Initially she was put on prednis Functional Status Date Functional Assessmen t No Information Instructions Date Instruction Additional Infor cholo Continue Entyvio and mesalamine, can decrease the dose of mesalamine to 3 pills a day, if symptoms come back then go back to 4 pills a day.Check fecal calprotectin. Our plan would be to do a colonoscopy next year to check for endoscopic and histological remission and if so we can consider taking her off mesalamine and increasing the frequency of Entyvio.Follow-up in 8 months. Related to Ulcerative colitis, unspecified, without complications 1. Continue with Ent yvio.2. Check for the 2nd dose of shingles vaccine.3. Try IBgard or dicyclomine as it has helped in the past.4. Check stool for fecal calprotectin. If this is elevated, then we may need to consider a short course of Uceris/budesonide or prednisone and see if that helps change the symptoms.5. Refer to a dietitian for a low-FODMAPs diet and see if this helps with her symptoms.6. Follow up in 4-5 months. Related to Ulcerative (chronic) pancolitis without complications Colon Cancer Prevention Related to Ulcerative (chronic) pancolitis without complications Colon Polyps Related to Ulcer ative (chronic) pancolitis without complications 1. Continue Entyvio every 4 weekly.2. Plan to proceed with colonoscopy to do endoscopic evaluation to the response of her current therapy.3. Get pneumonia and shingles vaccine with her primary care.4. Annual skin checks.5. Take calcium and vitamin D daily.6. Try IBgard daily as needed for abdominal cramps.If she is in endoscopic and histological remission, then we can consider stopping mesalamine over time. We also discussed future options regarding therapy.They did mention that she is considering an overseas or out of state semester next year. I did discuss with them that they will need to find out from the insurance about coverage and other things regarding that time. Their questions were answered. They will update us as needed. Related to Ulcerative (chronic) pancolitis without complications RECOMMENDATIONS1. Ch bella the Entyvio to q.4 weeks given the low level and active disease as this may help with that.2. Continue mesalamine.3. Use Canasa suppository along with the Cortifoam to decrease the rectal inflammation and hopefully that may help her symptomatically.4. Vitamin D supplementation high dose for 12 weeks, take calcium along with it daily.5. Iron deficiency anemia. Once she starts feeling better, she will likely benefit from IV iron supplementation.6. Give update as an needed and follow up in the clinic in 2-3 months. If she still has ongoing issues, then would consider repeating a flexible sigmoidoscopy prior to changing to the next therapy. The patient's and mom's questions were answered. Related to Ulcerative pancolitis without complication IBD Folder Related to Ulcer ative pancolitis without complication 1. Continue Entyvio for now2. Trial Prednisone 5 day course-rx sent for 50mg once daily3. Bentyl twice daily for cramping4. Repeat labs and calprotectin stool test5. See adult IBD provider-might need to add additional medication if symptoms not improving. Related to Ulcerative (chronic) rectosigmoiditis with oth complication 1. Try to keep a gen erally healthy diet, reducing added sugars, processed foods2. For now, you may want to reduce your fiber intake - cooked vegetables, soft or peeled fruits, white breads, nut butters instead of whole nuts and seeds. As the Humira works better for you, you can gradually reintroduce fiber as fiber is beneficial for you in the long run. 3. Keep fat intake low to moderate - higher fat can stimulate more bowel movements Related to Ulcerative colitis, unspecified, without complications IBD Folder Related to Ulcer ative colitis, unspecified, without complications 1. Lab work in 6 wee ks2. Give Humira-80mg today3. Then start Humira-40mg every week4. Follow-up in 7 weeks. If symptoms don't respond need to move on to another biologic. Related to Ulcerative colitis, unspecified, without complications 1. Start Mesalamine suppositories nightly for next 2 weeks2. Seek approval for Humira 40mg weekly and to do induction dosing again3. Follow-up in 2-3 months.4. Could consider a prednisone course if Milly changes her mind. Related to Ulcerative colitis, unspecified, without complications + In two weeks give ONE 80 mg pen. + Maintenance dose is one 40 mg pen every other week + Follow up w/ Johanna Mata+ Will send updated lab schedule via Patient Portal Related to Ulcerative colitis, unspecified, without complications 1. Can do trial of c ortenemas2. Insurance appeal to transition to Humira3. Follow-up after on Humira for 4-6 weeks. Related to Ulcerative colitis, unspecified, without complications 1. Continue Remicade every 4 weeks for now2. Trial of cortenemas or Uceris foam for 2 weeks3. If not helpful may need to do oral budesonide or 5-ASA4. Follow-up in 6 months or earlier if needed. Related to Ulcerative colitis, unspecified, without complications Infliximab IV per celerated protocol Infliximab IV per celerated protocol 1. Labs today2. Stoo l test-drop off at [place]3. Labs before next infusion4. Switch Remicade to 10m/kg/dose every 4 weeks for now5. If symptoms continue and remicade level adequate-Colonoscopy6. If symptoms continue and Remicade level low without antibodies-consider redoing induction. Related to Ulcerative colitis in pediatric patient 1. [facility]. If transitioning care-evaluate records specifically Remicade level/antibody screens. Consider Colonoscopy. Related to Ulcerative colitis in pediatric patient Assessments Type Assessment Date assessment Ulcerative (chronic) pancolitis without complications Patient Care Teams Name Effective Dates (start - stop) Status Members No Information
[2025-05-29 21:28] VITALS: BP 128/85; PULSE 68; RESP 18; TEMP 36.5; O2SAT 97; BMI 25.2
--- NOTE | 2025-05-29 21:47 | ED_ITS ---
HPI - General Adult General Chief complaint: Back Injury/Pain Stated complaint: Lower Back Pain Time Seen by Provider: 05/29/25 21:31 History of Present Illness HPI narrative: pt reports back pain. pt has been changing over past few months. today the pain got worse when playing frisbee with a friend, 1430 today. No history of traumatic back injuries. Tylenol taken today around 1530, two pills . 20-year-old young woman presenting to the emergency department with complaint of low back pain. Has been experiencing possibly 2 months of on and off low back pain. Seems to radiate into bilateral hips at times. Any movement, flexion at the waist causes pain. Attends [employer] and works at ?[employer] This does involve out of digging, bending, stooping. No history of trauma. No nocturnal sweats or fevers noted. Does have history of ulcerative(?) colitis. Did take some acetaminophen but not ibuprofen as this can exacerbate. Has not experienced a specific trauma. Related Data Previous Rx's ?Medication ?Instructions ?Recorded diclofenac sodium 3 % topical gel 1 applic topical BID PRN #100 grams 05/29/25 Allergies Allergy/AdvReac Type Severity Reaction Status Date / Time ibuprofen AdvReac Unknown Irritable Verified 05/29/25 21:33 Review of Systems Status of ROS: Reports: 6 or more systems reviewed and unremarkable except as noted in History and below [facility] Social History Smoking Status: Never smoker Do you use any of these nicotine containing products: None How often do you have a drink containing alcohol: never AUDIT-C Alcohol total score: 0 Non-prescribed substance use: denies use Exam Narrative: Exam Narrative: A little sore to palpation bilaterally on the outer aspect of the lower left thigh above the knee and somewhat bilaterally as well on the outer upper thighs but not discretely at greater trochanters. Does have some soreness described across the L 3 - 4 area in the back in the musculature. No actual midline tenderness to palpation. Does seem a little sore in the SI joints bilaterally as well. Const: Vital Signs, click to edit/add: Vital Signs - 24 hr 05/29/25 21:28 Temperature 97.7 F Pulse Rate [Left P ulse Oximeter] 68 Respiratory Rate 18 Blood Pressure [Ri ght Upper Arm] 128/85 Pulse Oximetry 97 Oxygen Delivery Me thod Room Air Documenting provider has reviewed patient's vital signs: yes Course Vital Signs Vital signs: Initial Vital Signs Temperature 97.7 F 05/29/25 21:28 Temperature Source Temporal Artery Scan 05/29/25 21:28 Pulse Rate 68 05/29/25 21:28 Pulse Rhythm Regular 05/29/25 21:28 Respiratory Rate 18 05/29/25 21:28 Blood Pressure 128/85 05/29/25 21:28 Blood Pressure Mean 99 05/29/25 21:28 Blood Pressure Position Sitting 05/29/25 21:28 Pulse Oximetry 97 05/29/25 21:28 Oxygen Delivery Method Room Air 05/29/25 21:28 Vital Signs Temperature 97.7 F 05/29/25 21:28 Pulse Rate 68 05/29/25 21:28 Respiratory Rate 18 05/29/25 21:28 Blood Pressure 128/85 05/29/25 21:28 Pulse Oximetry 97 05/29/25 21:28 Oxygen Delivery Method Room Air 05/29/25 21:28 Temperature 97.7 F 05/29/25 21:28 Pulse Rate 68 05/29/25 21:28 Respiratory Rate 18 05/29/25 21:28 Blood Pressure 128/85 05/29/25 21:28 Pulse Oximetry 97 05/29/25 21:28 Oxygen Delivery Method Room Air 05/29/25 21:28 Medications Administered Medications: Discontinued Medications Generic Name Dose Route Start Last Admin Trade Name Freq PRN Reason Stop Dose Admin Lidocaine 1 patch 05/29/25 21:58 05/29/25 22:12 Lidocaine 5% Patch TRANSDERMA 05/29/25 21:59 1 patch ONCE ONE Administration Protocol Medical Decision Making MDM Narrative Medical decision making narrative: Could be facet inflammation. I think what she is experiencing some sacroiliac joint pain is causing some muscle recruitment and tension down through her hips. May have developed some IT band issue parental think that is the primary problem. At worst some sort of lesion in the spine. Discussed potential benefit of lumbar spine imaging as initial screening. I would also show some scoliotic changes that might be contributing. Probably low yield without injury but if there is any bony lesion of surprising this could be useful. I think waiting for follow-up would be all right as well. Mutually agreed to proceed with x-ray imaging. X-ray of the lumbar spine independently reviewed by me looks to be WNL. I do not see particular abnormalities about the sacral iliac joints either. Placed a lidocaine patch in area where she feels the most pain just above the bilateral SI joints. Improved already prior to departure with the lidocaine patch she thought. Also placed an abdominal binder which appears to have been further helpful as a binder around the hips. See patient discharge plan for further discussion I think you may be experiencing some low back pain related to sacroiliac joint dysfunction. And then muscle pain regionally. You might follow-up in primary care clinic or Sports Medicine or Orthopedics (locally is [phone]) to discuss further and possibly be referred to physical therapy for further evaluation and cares. Otherwise see handout and follow the exercises. They shouldn't hurt; I would expect these to only help. Can continue with acetaminophen. I understand that you would not be wanting to take NSAIDs and oral steroids have been problematic. Might try topical NSAID like diclofenac gel which you can purchase [id number]. Prescribing 3% diclofenac though that you could try as well. If the lidocaine patch is helpful, you can purchase more [id number]. Ice packs? I like the screw top ice bags - fill with about a tray of ice some water Can wear this abdominal binder as needed for comfort. You might also consider an appointment with a chiropractor. Locally would consider Thao Patel [phone] or Noe Padgett [phone] Discharge Plan Discharge Clinical Impression: Low back pain Patient Disposition: Home w/ Parent or Adult Condition: Improved Additional Instructions: I think you may be experiencing some low back pain related to sacroiliac joint dysfunction. And then muscle pain regionally. You might follow-up in primary care clinic or Sports Medicine or Orthopedics (locally is [phone]) to discuss further and possibly be referred to physical therapy for further evaluation and cares. Otherwise see handout and follow the exercises. They shouldn't hurt; I would expect these to only help. Can continue with acetaminophen. I understand that you would not be wanting to take NSAIDs and oral steroids have been problematic. Might try topical NSAID like diclofenac gel which you can purchase [id number]. Prescribing 3% diclofenac though that you could try as well. If the lidocaine patch is helpful, you can purchase more [id number]. Ice packs? I like the screw top ice bags - fill with about a tray of ice some water Can wear this abdominal binder as needed for comfort. You might also consider an appointment with a chiropractor. Locally would consider Thao Patel [phone] or Noe Padgett [phone] Prescriptions: New diclofenac sodium 3 % gel 1 applic topical BID PRNQty: 100 0RF Stand Alone Forms: MyHealth Info Instructions
[2025-05-29] MEDS: LIDOCAINE 5% PATCH 1 PATCH TRANSDERMA (22:12)
--- NOTE | 2025-05-29 22:34 | CRLHL7_ITS ---
For Patients: As a result of the Cures Act, medical imaging exams and procedure reports are released immediately into your electronic medical record. You may view this report before your referring provider. If you have questions, please contact your health care provider. INDICATION: Low back pain, sc joint pain, sacroiliac joint pain TECHNIQUE: Lumbar spine radiograph 3 views COMPARISON: None FINDINGS: Bone: No acute fractures or aggressive bone lesions are identified. Alignment is normal. Disc: The disc spaces are unremarkable in appearance. The facet joints are unremarkable. Soft tissue: Unremarkable. No radiopaque foreign bodies are seen. IMPRESSION: 1. No acute osseous injuries are noted. Dictated by: Soham Walls MD @ 05/29/2025 22:47:18 (Electronically Signed)
--- OUTSIDE RECORDS SUMMARY | 2025-05-29 23:39 | XMS_ITS | Encounter Summary ---
Author Organization [place] Address [address] [place] [address] Care Team Providers Care Skilled Labor Name Role Phone Olamide Calhoun NP Primary Care Provider [phone] Olamide Calhoun NP Unavailable [phone] Megan Lund MD Unavailable Patricia Ann PA-C Unavailable [phone] Loreto De Jesus PA-C Unavailable Patricia Ann PA-C Unavailable [phone] Loreto De Jesus PA-C Unavailable Patricia Ann PA-C Primary Care Provider [phone] Cheryl Cook [facility] Unavailable [phone] Loreto De Jesus PA-C Unavailable Noé Joseph [facility] Unavailable Reason for Visit * Reason Onset Date Comments Refill Request 11/18/2021 Encounter Details Date Type Department Care Team (Late st Contact Info) Description 11/18/2021 [facility] [address] [place] [phone] Olamide Calhoun, LEAD MAINTENANCE TECHNICIAN [address] [phone] Refill Request Social History Tobacco Use Types Packs/Day Years Used Date Smoking Tobacco: Never Smokeless Tobacco: Never Comments:cigar outside Alcohol Use Standard Drinks/Week Comments No 0 (1 standard drink = 0.6 oz pur e alcohol) PHQ-2 Answer Date Recorded PHQ-2 Score 2 08/17/2020 Comments No Sex and Gender Information Value Date Recorded Sex Assigned at Not on file Legal Sex Female 4:30 AM TELEPHONE ANSWERER Gender Identity Not on file Sexual Orientation Not on file documented as of this encounter Plan of Treatment Upcoming Encounters Date Type Department Care Team (Late st Contact Info) Description 06/09/2025 8:30 AM TELEPHONE ANSWERER Office Visit [facility] [address] [place] [phone] Kesha Monique PA-C [id number] [place] [address] 06/18/2025 10:00 AM TELEPHONE ANSWERER Virtual Visit [facility] [address] [place] [address] Noé Joseph[address] [address] 08/11/2025 10:00 AM TELEPHONE ANSWERER Virtual Visit [facility] [address] [place] [address] [address] documented as of this encounter Visit Diagnoses Not on filedocumented in this encounter Additional Health Concerns Assessment Noted Time PHQ-9 Depression Total Score: 7 08/17/19 21 3:08 PM TELEPHONE ANSWERER documented as of this encounter Care Teams Skilled Labor Relationship Specialty Start Date End Date Olamide Calhoun LEAD MAINTENANCE TECHNICIAN PCP - General Family Practice 9/29/14 8/18/24 Patricia Ann PA-C [address] [place] [phone] PCP - General Family Medicine 02/24/24 Olamide Calhoun, LEAD MAINTENANCE TECHNICIAN 2270 [facility], [address] [address] Assigned PCP 02/15/19 03/02/22 [place] [address] [address] [place] [address] Assigned PCP 03/03/22 07/12/23 Patricia Ann PA-C [address] [place] [address] Referring Physician Family Medicine 07/05/23 Loreto De Jesus PA-C [address] [place] [address] Physician Receptionist Airline Lounge Dermatology 07/05/23 Patricia Ann PA-C [address] [place] [address] Assigned PCP 07/13/23 Loreto De Jesus PA-C [address] [place] [address] Assigned Surgical Provider 01/28/24 Cheryl Cook, [facility] [address] [place] [address] Assigned Behavioral Health Provider 03/30/24 11/26/24 Loreto De Jesus PA-C [address] [address] Assigned Dermatology Provider 09/27/24 Noé Joseph LICSW [address] [place] [id number] Assigned Behavioral Health Provider 11/27/24 documented as of this encounter
--- OUTSIDE RECORDS SUMMARY | 2025-05-29 23:39 | XMS_ITS | Encounter Summary ---
Author Organization [place] Address [address] [place] [address] Care Team Providers Care Telecommunications Sales Representative Name Role Phone Olamide Calhoun NP Primary Care Provider [phone] Olamide Calhoun NP Unavailable [phone] Yuriy Melgar MD Unavailable Megan Lund MD Unavailable Patricia Ann PA-C Unavailable [phone] Loreto De Jesus PA-C Unavailable Patricia Ann PA-C Unavailable [phone] Loreto De Jesus PA-C Unavailable Patricia Ann PA-C Primary Care Provider [phone] Cheryl Cook [facility] Unavailable [phone] Loreto De Jesus PA-C Unavailable Noé Joseph Unavailable [phone] Encounter Details Date Type Department Care Team (Late st Contact Info) Description 2021 [facility]ng[facility] [address] [address] Myla Terrazas, RN Social History Tobacco Use Types Packs/Day Years Used Date Smoking Tobacco: Never Smokeless Tobacco: Never Comments:cigar outside Alcohol Use Standard Drinks/Week Comments No 0 (1 standard drink = 0.6 oz pur e alcohol) PHQ-2 Answer Date Recorded PHQ-2 Score 2 08/17/2020 Comments No Sex and Gender Information Value Date Recorded Sex Assigned at Not on file Legal Sex Female 4:30 AM PROCESS TECHNICIAN Gender Identity Not on file Sexual Orientation Not on file documented as of this encounter Plan of Treatment Upcoming Encounters Date Type Department Care Team (Late st Contact Info) Description 06/09/2025 8:30 AM PROCESS TECHNICIAN Office Visit [facility] [address] [place] [address] Kesha Monique PA-C [address] [place] [address] 06/18/2025 10:00 AM PROCESS TECHNICIAN Virtual Visit [facility] [address] [place] [address] Noé Joseph[address] [address] 08/11/2025 10:00 AM PROCESS TECHNICIAN Virtual Visit [facility] [address] [place] [address] Noé Joseph[address] [address] documented as of this encounter Visit Diagnoses Not on filedocumented in this encounter Additional Health Concerns Assessment Noted Time PHQ-9 Depression Total Score: 7 08/17/19 21 3:08 PM PROCESS TECHNICIAN documented as of this encounter Care Teams Telecommunications Sales Representative Relationship Specialty Start Date End Date Olamide Calhoun NP PCP - General Family Practice 04/05/14 02/23/24 Patricia Ann PA-C [id number] [place] [phone] PCP - General Family Medicine 02/24/24 Olamide Calhoun, PUTTY AND PATCH WORKER 2270 [facility] 200 [place] [address] Assigned PCP 02/15/19 03/02/22 Yuriy Melgar MD [facility] [address] [facility] 120 [place] [address] Assigned Pediatric Specialist Provider 04/29/20 07/08/21 [place] [address] [place] [address] Assigned PCP 03/03/22 07/12/23 Patricia Ann PA-C [address] [place] [address] Referring Physician Family Medicine 07/05/23 Loreto De Jesus PA-C [address] [place] [address] Physician Patient Case Coordinator Dermatology 07/05/23 Patricia Ann PA-C [address] [place] [address] Assigned PCP 07/13/23 Loreto De Jesus PA-C [address] [place] [address] Assigned Surgical Provider 01/28/24 Cheryl Cook [facility] [address] [place] [address] Assigned Behavioral Health Provider 03/30/24 11/26/24 Loreto De Jesus PA-C [address] [place] [address] Assigned Dermatology Provider 09/27/24 Noé Joseph LICSW [address] [place] [address] Assigned Behavioral Health Provider 11/27/24 documented as of this encounter
--- OUTSIDE RECORDS SUMMARY | 2025-05-29 23:39 | XMS_ITS | Clinical Summary ---
Author Organization [place] Address [address] [place] [address] Care Team Providers Care Nuclear Physics Teacher Name Role Phone Patricia Ann PA-C Unavailable [phone] Loreto De Jesus PA-C Unavailable [phone] Patricia Ann PA-C Unavailable Patricia Ann PA-C Primary Care Provider [phone] Loreto De Jesus PA-C Unavailable [phone] Noé Joseph Unavailable [phone] Allergies Active Allergy Reactions Criticality Noted Date Comments Shellfish Protein-Containing Drug Products 03/08/2020 Medications albuterol (PROAIR HFA/PROVENTIL HFA/VENTOLIN HFA) 108 (90 BASE) MCG/ACT InhalerIndicati ons:SOB (shortness of breath) Inhale 2 puffs into the lungs every 6 hours as needed for shortness of breath / dyspnea or wheezing 1 Inhaler 1 7 Active acetaminophen (TYLENOL) 325 MG tablet Take 2 tablets (650 mg) by mouth every 4 hours as needed for mild pain 50 tablet 8 Active dicyclomine (BENTYL) 20 MG tablet TAKE 1 TABLET BY MOUTH TWICE A DAY 2 Active mesalamine (LIALDA) 1.[address] tablet Take 1,200 mg by mouth daily 3 Active Active Problems Problem Noted Date Diagnosed Date Screening for cervical cancer 07/13/2024 Overview (07/13/2024): ~ immunocompromised due to drug therapy 07/06/24 NIL pap. Plan pap in 1 year. Immunocompromised state due to drug therapy 02/06 Mild episode of recurrent major depressive disor rosalva 02/26/2024 Social anxiety disorder 08/08/2023 Ulcerative pancolitis with rectal bleeding 04/17 Abdominal pain, generalized 03/31/2019 Blood in stool 11/29/2017 Resolved Problems Problem Noted Date Diagnosed Date Resolved Date Periorbital cellulitis 06/05/200403/15 Overview (06/05/2004): Mild; resolved with outpt. treatment Encounters Date Type Department Care Team Description 05/21/2025 8:00 AM DIRECTOR OF BUSINESS CONTINUITY Virtual Visit [facility] [address] [place] [address] Noé Joseph LICSW Social anxiety disorder (Primary Dx) 04/23/2025 7:00 AM CDT Virtual Visit [facility] [address] [place] [address] Noé Joseph LICSW Social anxiety disorder (Primary Dx) 03/12/2025 8:00 AM CDT Virtual Visit [facility] [address] [place] [address] Noé Joseph LICSW Social anxiety disorder (Primary Dx) from Last 3 Months Immunizations Immunization Administration Dates Next Due COVID-19 12+ (Pfizer) 04/14/2024 COVID-19 MONOVALENT 12+ (Pfizer) 06/29/2021,10/07,10/12/2020 DTAP (<7y) 08/03/2004,,2003,06/25 DTAP-IPV, <7Y (QUADRACEL/KINRIX) 05/05/2008 DTaP/HepB/IPV 2003,2003,2003 HEPA 01/28/2008,05/16/2007 HIB (PRP-T) 08/03/2004, 4,2003,06/25 HPV9 (Gardasil) 02/12/2018,02/22/2017 Hepatitis B, Adult (Energix-B/Recombivax HB) 07/06/2024 Hepatitis B, Peds (Engerix-B/Recombivax HB) 08/10/2019 Influenza (IIV3) PF 05/09/2012, 6,05/04/2005,06/09,04/22/2004 Influenza (prior to 2023) 05/12/2017,,05/04/2005,06/09 Influenza Vaccine 18-64 (Flublok) 04/14/2024 Influenza Vaccine >6 months,quad, PF 11/2022,03/29/2021,05/06/2019,03/23 Influenza, Split Virus, Triv alent, Pf (Fluzone\Fluarix) 05/12/2017 Influenza,INJ,MDCK,PF,Quad >6mo(Flucelvax) 04/08/2022,04/06/2020 MMR (MMRII) 05/05/2008,05/04/2004 Meningococcal ACWY (Menactra ) 08/10/2019,03/23/2015 Nasal Influenza Vaccine 2-49 (FluMist) 4,05/05/2013 Pneumococcal (PCV 7) 08/03/2004,01/24/20 04,2003,06/25 Pneumococcal 20 valent Conju gate (Prevnar 20) 07/04/2023 Pneumococcal 23 valent 08/10/2019 TDAP Vaccine (Adacel) 03/23/2015 Varicella (Varivax) 05/05/2008,05/04/2004 Zoster recombinant adjuvante d (Shingrix) 07/04/2023 Family History Medical History Relation Comments Coronary Artery Disease Maternal Grandfather Skin Cancer Maternal Grandmother Allergies Mother mother also has asthma Asthma Mother Lipids Other grandmother Relation Status Comments Maternal Grandfather Maternal Grandmother Mother Other Social History Tobacco Use Types Packs/Day Years Used Date Smoking Tobacco: Never Smokeless Tobacco: Never Tobacco Cessation:Counseling Given: Not Answered Comments:cigar outside Alcohol Use Standard Drinks/Week Comments Never 0 (1 standard drink = 0.6 oz pur e alcohol) Social Connection and Isolation Panel Answer Date Recorded Frequency of Communication with Friends and Fami ly Not on file 07/05/2024 How often do you get togethe r with friends or relatives? Three times a week 07/05/2024 Attends [employer] Services Not on file 07/05 Active Member [...] Answer Date Recorded PHQ-2 Score 2 05/21/2025 [facility] - Occupational Stress [...] in an abandoned building, in an overnight residential, or couch-surfing.) Yes 07/05/2024 Are you worried [...] on file Legal Sex Female 4:30 AM DIRECTOR OF BUSINESS CONTINUITY Gender Identity Not on file Sexual Orientation Not on file Last Filed Vital Signs Vital Sign Reading Time Taken Comments Blood Pressure 101/67 07/06/2024 1:12 PM DIRECTOR OF BUSINESS CONTINUITY Pulse 64 07/06/2024 1:12 PM DIRECTOR OF BUSINESS CONTINUITY Temperature 36.6 C (97.9 F) 07/06/2024 1:12 PM DIRECTOR OF BUSINESS CONTINUITY Respiratory Rate 16 07/06/2024 1:12 PM DIRECTOR OF BUSINESS CONTINUITY Oxygen Saturation 98% 07/06/2024 1:12 PM DIRECTOR OF BUSINESS CONTINUITY Inhaled Oxygen Concentration - - Weight 58 kg (127 lb 12.8 oz) 07/06/2024 1:12 PM DIRECTOR OF BUSINESS CONTINUITY Height 158.8 cm (5' 2.5) 07/06/2024 1:12 PM DIRECTOR OF BUSINESS CONTINUITY Body Mass Index 23 07/06/2024 1:12 PM DIRECTOR OF BUSINESS CONTINUITY Plan of Treatment Upcoming Encounters Date Type Department Care Team (Late st Contact Info) Description 06/09/2025 8:30 AM DIRECTOR OF BUSINESS CONTINUITY Office Visit [address] [address] Kesha Monique, PAHugo [address] [place] [address] 06/18/2025 10:00 AM DIRECTOR OF BUSINESS CONTINUITY Virtual Visit [facility] [address] [place] [address] Noé Joseph[address] [address] 08/11/2025 10:00 AM DIRECTOR OF BUSINESS CONTINUITY Virtual Visit [facility] [address] [place] [address] [address] Health Maintenance Due Date Last Done Comments CT COLONOGRAPHY 2003 DEPRESSION ACTION PLAN 2003 sDNA (Cologuard) 2003 FIT 12/03/2018 12/03/2017 MENINGITIS B VACCINE (1 of 2 - Standard) 2019 ZOSTER VACCINE (2 of 2) 08/29/2023 07/04/2023 ANNUAL REVIEW OF HM ORDERS 07/04/2024 07/04/2023, CHLAMYDIA SCREENING 07/06/2025 07/06/2024 PAP FOLLOW-UP 07/06/2025 07/06/2024 YEARLY PREVENTIVE VISIT 07/06/2025 07/06/20 24, 07/04/2023, 02/24/2020, Additional history exists COVID-19 VACCINE (8 - Pfizer risk 2024- season) 2025 04/08/2025, 04/14/2024, 04/11/2023, Additional history exists PHQ-9 11/18/2025 05/21/2025, 04/07, 03/12/2025, Additional history exists COLONOSCOPY 06/27/2026 06/27/2023, 06/07, 04/09/2019, Additional history exists COLORECTAL CANCER SCREENING 06/27/2026 FLEX SIG 10/13/2026 10/13/2021 ADVANCE CARE PLANNING 07/06/2029 07/06/2024 DTAP/TDAP/TD VACCINE (8 - Td or Tdap) 04/27/2035 04/27/2025, 03/23/2015, 05/05/2008, Additional history exists HPV VACCINE Completed 02/12/2018, 02/22/2017 HEPATITIS C SCREENING Completed 04/17/2019 MENINGITIS VACCINE Completed 08/10/2019, 03/23/2015 HIV SCREENING Completed 07/04/2023 PNEUMOCOCCAL VACCINE: PEDIAT RICS (0 to 5 YEARS) AND AT-RISK PATIENTS (6 to 49 YEARS) Completed 07/04/2023, 08/10/2019, 08/03/2004, Additional history exists HEPATITIS B VACCINE Completed 07/06/2024, 08/10/2019, 2003, Additional history exists PAP Discontinued 07/06/2024 INFLUENZA VACCINE Completed 04/08/2025, , 04/11/2023, Additional history exists Procedures Procedure Name Priority Date/Time Associated Diagnosis Comments LAB RESULT - HIM INTERFACE 04/16/2025 8:46 AM CDT LAB RESULT - HIM INTERFACE 03/12/2025 10:32 AM CDT CHLAMYDIA TRACHOMATIS PCR Routine 07/06/2024 2:03 PM DIRECTOR OF BUSINESS CONTINUITY Screening for chlamydial disease GYNECOLOGIC CYTOLOGY Routine 07/06/2024 1:36 PM DIRECTOR OF BUSINESS CONTINUITY Cervical cancer screening HIV ANTIGEN ANTIBODY COMBO Routine 07/04/2023 12:16 PM DIRECTOR OF BUSINESS CONTINUITY Screening for HIV (human immunodeficiency virus) COLONOSCOPY - HIM SCAN 06/27/2023 12:00 AM DIRECTOR OF BUSINESS CONTINUITY FLEXIBLE SIGMOIDOSCOPY - HIM SCAN 10/13/2021 12:00 AM CDT HEPATITIS C ANTIBODY Routine 04/17/2019 2:00 PM CDT Ulcerative pancolitis with rectal bleeding (H) OCCULT BLOOD STOOL Routine 12/03/2017 6: 00 PM CDT Blood in stool from Last 3 Months or Most Recently Relevant to Health Maintenance Results * Lab Result - HIM Interface (04/16/2025 8:46 AM CDT) Only the most recent of2 resultswithin the time period is included. Narrative Procedure Note Rand Rivas APRN CNP - 04/16/2025 8:46 AM CDT 04/16/2025 Milly Philip [address] [place] [address] Milly Philip, : 2005 I'm writing to let you know about the tests that were taken recently.Thank you for allowing [facility] the opportunity to take part in yourhealthcare. At [facility] we strive to provide each patient with the finestgastroenterology care available. We hope your experience was pleasant andinformative. Milly, Your stool testing for inflammation is normal. Calprotectin, Fecal 04/07/2025 07:45 Description Result Units Flags Range Calprotectin, Fecal 8 ug/g 0-120 Comments SRC:Stool Performed At: [facility] [address], [id number] Nuzhat Arteaga MD, Phone: [phone] Calprotectin, Fecal: Concentration Interpretation Follow-Up < 5 - 50 ug/g Normal None >50 -120 ug/g Borderline Re-evaluate in 4-6 weeks >120 ug/g Abnormal Repeat as clinically indicated Please call sooner if you have a problem, otherwise I'll see you as we hadpreviously scheduled. If symptoms persist or if you have questionsregarding your results, please call our office. Thank you. Electronically signed by: Rand Rivas NP 04/16/2025 08:47 AM Document generated by: Rand Rivas NP 04/16/2025 If your provider ordered multiple tests; the results may not becomeavailable at the same time. If multiple test results are received [id number] days of one another, you may receive a duplicate. cc: Patricia BRITO cc: Olamide Calhoun NP Rand Rivas APRN RABBLE FURNACE TENDER NON-BEAKER LAB TESTIN G Final Result * Chlamydia trachomatis PCR (07/06/2024 2:03 PM DIRECTOR OF BUSINESS CONTINUITY) Chlamydia trachomatis Negative Negative 07/07/2024 10:47 AM DIRECTOR OF BUSINESS CONTINUITY [facility] Comment:A negative result by pathology transcriptionist mediated amplification does not preclude the presence of C. trachomatis infection because results are dependent on proper and adequate collection, absence of inhibitors and sufficient rRNA to be detected. Urine VOIDED URINE SPECIMEN / Unknown Non-blood Collection / Unknown 07/06/2024 2:03 PM DIRECTOR OF BUSINESS CONTINUITY 07/06/2024 2:03 PM DIRECTOR OF BUSINESS CONTINUITY us Patricia Ann PA-C LAB - MICRO GENERAL ORDERABLES Final Result [facility] Inf. Diseases Diag. Lab [address] [facility], [address] [place] [phone] * Pap Screen Only - Recommended Age 21 - 24 Years (07/06/2024 1:36 PM DIRECTOR OF BUSINESS CONTINUITY) Interpretation Negative for Intraepithelial Lesion or Malignancy (NILM) 07/10/2024 2:21 PM DIRECTOR OF BUSINESS CONTINUITY [facility] at 1421 DIRECTOR OF BUSINESS CONTINUITY Comment Papanicolaou Test Limitations: Cervical cytology is a screening test with limited sensitivity, and regular screening is critical for cancer prevention. Pap tests are primarily effective for the diagnosis/prevent ion of squamous cell carcinoma, not adenocarcinoma or other cancers. 07/10/2024 2:21 PM DIRECTOR OF BUSINESS CONTINUITY [facility] Specimen Adequacy Satisfactory for evaluation, endocervical/amaya sformation zone component absent 07/10/2024 2:21 PM DIRECTOR OF BUSINESS CONTINUITY [facility] Clinical Information none 07/10/2024 2:21 PM DIRECTOR OF BUSINESS CONTINUITY [facility] Reflex Testing No 07/10/2024 2:21 PM DIRECTOR OF BUSINESS CONTINUITY [facility] Previous Abnormal? No 07/10/2024 2:[address] [facility] Performing Labs The technical component of this testing was completed at [facility]. Stain controls for all stains resulted within this report have been reviewed and show appropriate reactivity. 07/10/2024 2:21 PM DIRECTOR OF BUSINESS CONTINUITY [facility] Brushing ENDOCERVICAL STRUCTURE / Unknown 07/06/2024 1:36 PM DIRECTOR OF BUSINESS CONTINUITY 07/06/2024 2:01 PM DIRECTOR OF BUSINESS CONTINUITY Patricia Ann PA-C LAB - BEAKER AP Final Result [facility] [address] [facility], Room [address] [address], [facility] * HIV Antigen Antibody Combo (07/04/2023 12:16 PM DIRECTOR OF BUSINESS CONTINUITY) HIV Antigen Antibody Combo Nonreactive Nonreactive 07/04/2023 7:48 PM DIRECTOR OF BUSINESS CONTINUITY [facility] Comment:Negative HIV-1/-2 an tigen and antibody screening test results usually indicate the absence of HIV-1 and HIV-2 infection. However, such negative results do not rule-out acute HIV infection. If acute HIV-1 or HIV-2 infection is suspected, detection of HIV-1 or HIV-2 RNA is recommended. Blood BLOOD SPECIMEN / Unknown Venipuncture / Unknown 07/04/2023 12:16 PM DIRECTOR OF BUSINESS CONTINUITY 07/04/2023 12:16 PM DIRECTOR OF BUSINESS CONTINUITY Patricia Ann PA-C LAB - BLOOD ORDERABLES Final R esult LABORATORY [facility] 500 [facility], Room [address] [address], [facility] [phone] * COLONOSCOPY - HIM SCAN (06/27/2023 12:00 AM DIRECTOR OF BUSINESS CONTINUITY) 06/27/2023 Provider Outside PROCEDURES Final Result * FLEXIBLE SIGMOIDOSCOPY - HIM SCAN (10/13/2021 12:00 AM CDT) 10/13/2021 Provider Outside PROCEDURES Final Result * Hepatitis C antibody (04/17/2019 2:00 PM CDT) Hepatitis C Antibody Nonreactive NR^Nonre active 04/20/2019 11:[address] [facility] Comment: Assay performance characteristics have not been established for newborns, infants, and children Blood specimen (specimen) 04/17/2019 2:00 PM CDT 04/17/2019 2:07 PM CDT us Yuriy Melgar MD LAB - BLOOD ORDERABLES Final Res ult [facility] [address] [place] [address] * (ABNORMAL) Occult blood stool (12/03/2017 6:00 PM CDT) Occult Blood Positive(A ) NEG^Negati ve 12/04/2017 9:27 AM CDT [facility] Stool specimen (specimen) 12/03/2017 6:00 PM CDT 12/04/2017 8:18 AM CDT us Olamide Calhoun NP LAB - STOOLS ORDERABLES Fin al Result Performing Organization Address City/[facility]/ZIP Co de Phone Number [facility] [address] [place] [id number] [phone] from Last 3 Months or Most Recently Relevant to Health Maintenance Insurance [employer] Advance Directives For more information, please contact: [phone] * No Code Status (Latest Code Status on File) Date Activated Date Inactivated Comments 2003 7:25 AM 2003 8:25 AM Care Teams Nuclear Physics Teacher Relationship Specialty Start Date End Date Patricia Ann PA-C [address] [place] [address] PCP - General Family Medicine 02/24/24 Patricia Ann PA-C [address] [place] [address] Referring Physician Family Medicine 07/05/23 Loreto De Jesus PA-C [address] [place] [address] Physician Assembler Fitter Dermatology 07/05/23 Patricia Ann PA-C [address] [place] [address] Assigned PCP 07/13/23 Loreto De Jesus PA-C [address] [place] [address] Assigned Dermatology Provider 09/27/24 Noé Joseph LICSW [address] [place] [address] Assigned Behavioral Health Provider 11/27/24
--- OUTSIDE RECORDS SUMMARY | 2025-05-29 23:39 | XMS_ITS | Clinical Summary ---
Author Organization [facility] Address [address] [address] Phone Care Team Providers Care Computer Patternmaker Name Role Phone Elsewhere, Pcp Primary Care Provider Unavailabl e Allergies No known active allergies Medications No known medications Active Problems Problem Noted Date Diagnosed Date Ulcerative chronic pancolitis without complicati ons 12/01/2024 Social History Tobacco Use Types Packs/Day Years Used Date Smoking Tobacco: Never Smokeless Tobacco: Never Comments Unknown Sex and Gender Information Value Date Recorded Sex Assigned at Not on file Legal Sex Female 12:31 PM CDT Gender Identity Not on file Sexual Orientation Not on file Last Filed Vital Signs Vital Sign Reading Time Taken Comments Blood Pressure 129/85 02/08/2025 9:23 AM CDT Pulse 76 02/08/2025 9:23 AM CDT Temperature 36.6 C (97.9 F) 02/08/2025 8:48 AM CDT Respiratory Rate - - Oxygen Saturation - - Inhaled Oxygen Concentration - - Weight 61.3 kg (135 lb 2.3 oz) 01/11/2025 7:52 A M CDT Height - - Body Mass Index - - Plan of Treatment Health Maintenance Due Date Last Done Comments Cervical Cancer Screening 2003 Last pap w/ HPV Testing 2003 Last pap w/o HPV Testing 2003 HPV Vaccine (Standing Order) (1 - 3-dose series) 2018 Chlamydia Screening 2019 Meningococcal B Vaccine (Sta nding Order) (1 of 2 - Standard) 2019 Hepatitis B Vaccine (Standin g Order) (1 of 3 - 19+ 3-dose series) 2022 PERTUSSIS (Standing Order) 2022 TETANUS (Standing Order) 2022 COVID-19 Single Dose 03/08/2025 Influenza Vaccine Seasonal (Standing Order) (#1) 2025 Pneumococcal/PCV20 Vaccine: Pediatrics (2-5 yrs) and At-Risk Patients (6-49 yrs) (Standing Order) Aged Out No longer eligible b ased on patient's age to complete this topic Insurance [employer] [facility] Care Teams Computer Patternmaker Relationship Specialty Start Date End Date Elsewhere, Pcp PCP - General 01/11/14
--- OUTSIDE RECORDS SUMMARY | 2025-05-29 23:39 | XMS_ITS | Encounter Summary ---
Author Organization [place] Address [address] [place] [address] Care Team Providers Care Salon Designer Name Role Phone Olamide Calhoun NP Primary Care Provider [phone] Olamide Calhoun NP Unavailable [phone] Megan Lund MD Unavailable [phone] Patricia Ann PA-C Unavailable [phone] Loreto De Jesus PA-C Unavailable [phone] Patricia Ann PA-C Unavailable [phone] Loreto De Jesus PA-C Unavailable [phone] Patricia Ann PA-C Primary Care Provider Cheryl Cook [facility] Unavailable [phone] Loreto De Jesus PA-C Unavailable [phone] Noé Joseph [facility] Unavailable [phone] Encounter Details Date Type Department Care Team (Late st Contact Info) Description 10/30/2021 [facility] Miguel Ángel [address] [address] Maia Aragon Social History Tobacco Use Types Packs/Day Years Used Date Smoking Tobacco: Never Smokeless Tobacco: Never Comments:cigar outside Alcohol Use Standard Drinks/Week Comments No 0 (1 standard drink = 0.6 oz pur e alcohol) PHQ-2 Answer Date Recorded PHQ-2 Score 2 08/17/2020 Comments No Sex and Gender Information Value Date Recorded Sex Assigned at Not on file Legal Sex Female 4:30 AM LABORATORY ASST Gender Identity Not on file Sexual Orientation Not on file documented as of this encounter Plan of Treatment Upcoming Encounters Date Type Department Care Team (Late st Contact Info) Description 06/09/2025 8:30 AM LABORATORY ASST Office Visit [facility] [address] [place] [address] Kesha Monique PA-C [address] [place] [address] 06/18/2025 10:00 AM LABORATORY ASST Virtual Visit [facility] [address] [place] [address] Noé Joseph[address] [address] 08/11/2025 10:00 AM LABORATORY ASST Virtual Visit [facility] [address] [place] [address] Noé Joseph[address] [address] documented as of this encounter Visit Diagnoses Not on filedocumented in this encounter Additional Health Concerns Assessment Noted Time PHQ-9 Depression Total Score: 7 08/17/19 21 3:08 PM LABORATORY ASST documented as of this encounter Care Teams Salon Designer Relationship Specialty Start Date End Date Olamide Calhoun NP PCP - General Family Practice 04/05/14 02/23/24 Patricia Ann PA-C [address] [place] [phone] PCP - General Family Medicine 02/24/24 Olamide Calhoun, CERTIFIED MEDICAL TRANSCRIPTIONIST [address] [address] Assigned PCP 02/15/19 03/02/22 [place] [address] [address] [facility] [address] Assigned PCP 03/03/22 07/12/23 Patricia Ann PA-C [address] [place] [address] Referring Physician Family Medicine 07/05/23 Loreto De Jesus PA-C [address] [place] [address] Physician Cable Placer Dermatology 07/05/23 Patricia Ann PA-C [address] [place] [address] Assigned PCP 07/13/23 Loreto De Jesus PA-C [address] [place] [address] Assigned Surgical Provider 01/28/24 Cheryl Cook [facility] [address] [facility] [place] [address] Assigned Behavioral Health Provider 03/30/24 11/26/24 Loreto De Jesus PA-C [address] [place] [address] Assigned Dermatology Provider 09/27/24 Noé Joseph LICSW [address] [place] [address] Assigned Behavioral Health Provider 11/27/24 documented as of this encounter
--- OUTSIDE RECORDS SUMMARY | 2025-05-29 23:39 | XMS_ITS | Encounter Summary ---
Author Organization [facility] Address [address] [place] [address] Care Team Providers Care Resident Assistant Name Role Phone Olamide Calhoun NP Primary Care Provider Olamide Calhoun NP Unavailable Yuriy Melgar MD Unavailable Megan Lund MD Unavailable [phone] Patricia Ann PA-C Unavailable [phone] Loreto De Jesus PA-C Unavailable Patricia Ann PA-C Unavailable [phone] Loreto De Jesus PA-C Unavailable Patricia Ann PA-C Primary Care Provider Cheryl Cook [facility] Unavailable [phone] Loreto De Jesus PA-C Unavailable Noé Joseph Unavailable Reason for Visit * Reason Comments Medication Refill APRI 0.15-30 MG-MCG tablet Encounter Details Date Type Department Care Team (Late st Contact Info) Description 04/20/[address] [facility] [address] [place] [address] Olamide Calhoun, BILLET CHECKER [address], [address] [address] Medication Refill ( APRI 0.15-30 MG-MCG tablet) Social History Tobacco Use Types Packs/Day Years Used Date Smoking Tobacco: Never Smokeless Tobacco: Never Comments:cigar outside Alcohol Use Standard Drinks/Week Comments No 0 (1 standard drink = 0.6 oz pur e alcohol) PHQ-2 Answer Date Recorded PHQ-2 Score 2 08/17/2020 Comments No Sex and Gender Information Value Date Recorded Sex Assigned at Not on file Legal Sex Female 4:30 AM CHIEF OPERATOR HYDROFORMER Gender Identity Not on file Sexual Orientation Not on file documented as of this encounter Miscellaneous Notes * Telephone Encounter - Bonnie Henry RN - 04/24/2021 9:29 AM CDT Risk Advisor, --Please contact patient and ask to schedule an annual visit/physical. ---Prescription approved per [facility] Refill Protocol. Bonnie Henry RN BSN [facility] --Last visit: 02/24/2020 --Future Visit: none documented in this encounter Plan of Treatment Upcoming Encounters Date Type Department Care Team (Late st Contact Info) Description 06/09/2025 8:30 AM CHIEF OPERATOR HYDROFORMER Office Visit [facility] [address] [place] [address] Kesha Monique PA-C [address] [place] [address] 06/18/2025 10:00 AM CHIEF OPERATOR HYDROFORMER Virtual Visit [facility] [address] [place] [address] Noé Joseph CUSTOMS OPENER VERIFIER PACKER [address] [place] [address] 08/11/2025 10:00 AM CHIEF OPERATOR HYDROFORMER Virtual Visit [facility] [address] [address] Noé Joseph, [facility] [address] [place] [address] documented as of this encounter Visit Diagnoses Diagnosis Mood swing Other specified episodic mood disorder documented in this encounter Additional Health Concerns Assessment Noted Time PHQ-9 Depression Total Score: 7 08/17/19 21 3:08 PM CHIEF OPERATOR HYDROFORMER documented as of this encounter Care Teams Resident Assistant Relationship Specialty Start Date End Date Olamide Calhoun, BILLET CHECKER PCP - General Family Practice 04/05/14 02/23/24 Patricia Ann PA-C [address] [place] [phone] PCP - General Family Medicine 02/24/24 Olamide Calhoun, BILLET CHECKER [address] [address] Assigned PCP 02/15/19 03/02/22 Yuriy Melgar MD [facility] [address] [address] Assigned Pediatric Specialist Provider 04/29/20 07/08/21 [place] [address] [place] [address] Assigned PCP 03/03/22 07/12/23 Patricia Ann PA-C [address] [place] [address] Referring Physician Family Medicine 07/05/23 Loreto De Jesus PA-C [address] [place] [address] Physician Quenching Machine Operator Dermatology 07/05/23 Patricia Ann PA-C [address] [place] [address] Assigned PCP 07/13/23 Loreto De Jesus PA-C [address] [address] Assigned Surgical Provider 01/28/24 Cheryl Cook [facility] [address]00 [place] [address] Assigned Behavioral Health Provider 03/30/24 11/26/24 Loreto De Jesus PA-C [address] [address] Assigned Dermatology Provider 09/27/24 Noé Joseph LICSW [address] [place] [address] Assigned Behavioral Health Provider 11/27/24 documented as of this encounter
--- OUTSIDE RECORDS SUMMARY | 2025-05-29 23:39 | XMS_ITS | Encounter Summary ---
Author Organization [facility] Address [address] [place] [address] Care Team Providers Care Builder'S Labourer Name Role Phone Patricia Ann-C Unavailable [phone] Loreto De Jesus-C Unavailable [phone] Patricia Ann PA-C Unavailable Loreto De Jesus-C Unavailable [phone] Patricia Ann PA-C Primary Care Provider [phone] Cheryl Cook [facility] Unavailable [phone] Loreto De Jesus PA-C Unavailable [phone] Noé Joseph Unavailable [phone] Encounter Details Date Type Department Care Team (Late st Contact Info) Description 03/02/2024 [facility] Advice [facility] [address] [place] [phone] Kesha Monique PA-C [address] [place] [address] Social History Tobacco Use Types Packs/Day Years Used Date Smoking Tobacco: Never Smokeless Tobacco: Never Comments:cigar outside Alcohol Use Standard Drinks/Week Comments No 0 (1 standard drink = 0.6 oz pur e alcohol) Social Connection and Isolation Panel Answer Date Recorded In a typical week, how many times do you talk on the phone with family, friends, or neighbors? More than three times a week 07/04/2023 How often do you get togethe r with friends or relatives? More than three times a week 07/04/2023 How often do you attend chur or moravian services? 1 to 4 times per year 07/04/2023 Do you belong to any clubs o r organizations such as yazidism groups, unions, fraternal or athletic groups, or school groups? Yes 07/04/2023 How often do you attend meet ings of the clubs or organizations you belong to? More than 4 times per year 07/04/2023 Are you , , di vorced, , never , or living with a partner? Never 07/04/2023 AUDIT-C Answer Date Recorded Q1: How often do you have a drink containing alcohol? Never 07/04/2023 Q2: How many drinks containi ng alcohol do you have on a typical day when you are drinking? Patient does not drink Q3: How often do you have si x or more drinks on one occasion? Never 07/04/2023 PHQ-2 Answer Date Recorded PHQ-2 Score 0 01/31/2024 [facility] - Occupational Stress Questionnaire Answer Date Recorded Do you feel stress - tense, restless, nervous, or anxious, or unable to sleep at night because your mind is troubled all the time - these days? To some extent 07/04/2023 Exercise Vital Sign Answer Date Recorde d On average, how many days pe r week do you engage in moderate to strenuous exercise (like a brisk walk)? 5 days 07/04/2023 On average, how many minutes do you engage in exercise at this level? 30 min 07/04/2023 Adolescent Education Answer Date Record ed Getting School Help Needed Not on file 04/21 Food Insecurity Answer Date Recorded Within the past 12 months, d id you worry that your food would run out before you got money to buy more? No 07/04/2023 Within the past 12 months, d id the food you bought just not last and you didn t have money to get more? No 07/04/2023 Housing Stability Answer Date Recorded Do you have housing? (Housin g is defined as stable permanent housing and does not include staying outside in a car, in a tent, in an abandoned building, in an overnight usp, or couch-surfing.) Yes 07/04/2023 Are you worried about losing your housing? No 07/04/2023 Financial Resource Strain Answer Date R ecorded Within the past 12 months, h ave you or your family members you live with been unable to get utilities (heat, electricity) when it was really needed? No 07/04/2023 Transportation Needs Answer Date Record ed Within the past 12 months, h as lack of transportation kept you from medical appointments, getting your medicines, non-medical meetings or appointments, work, or from getting things that you need? No 07/04/2023 Interpersonal Safety Answer Date Record ed Do you feel physically and e motionally safe where you currently live? Yes 07/04/2023 Within the past 12 months, h ave you been hit, slapped, kicked or otherwise physically hurt by someone? No 07/04/2023 Within the past 12 months, h ave you been humiliated or emotionally abused in other ways by your partner or ex-partner? No 07/04/2023 Comments No Sex and Gender Information Value Date Recorded Sex Assigned at Not on file Legal Sex Female 4:30 AM CLEANER WINDOW Gender Identity Not on file Sexual Orientation Not on file documented as of this encounter Plan of Treatment Upcoming Encounters Date Type Department Care Team (Late st Contact Info) Description 06/09/2025 8:30 AM CLEANER WINDOW Office Visit [facility] [address] [place] [address] Kesha Monique PA-C [address] [place] [address] 06/18/2025 10:00 AM CLEANER WINDOW Virtual Visit [facility] [address] [place] [address] Noé Joseph, REIMBURSEMENT COUNSELOR [address] [place] [address] 08/11/2025 10:00 AM CLEANER WINDOW Virtual Visit [facility] [address] [place] [address] Noé Joseph, [facility] [address] [place] [address] documented as of this encounter Visit Diagnoses Not on filedocumented in this encounter Additional Health Concerns Assessment Noted Time PHQ-9 Depression Total Score: 1 01/31/20 24 12:23 PM CDT documented as of this encounter Care Teams Builder'S Labourer Relationship Specialty Start Date End Date Patricia Ann PA-C [address] [place] [address] PCP - General Family Medicine 02/24/24 Patricia Ann PA-C [address] [place] [phone] Referring Physician Family Medicine 07/05/23 Loreto De Jesus PA-C [address] [place] [address] Physician Sales And Production Manager Dermatology 07/05/23 Patricia Ann PA-C [address] [place] [address] Assigned PCP 07/13/23 Loreto De Jesus PA-C [address] [place] [address] Assigned Surgical Provider 01/28/24 Cheryl Cook, [facility] [address] [place] [address] Assigned Behavioral Health Provider 03/30/24 11/26/24 Loreto De Jesus PA-C [address] [address] Assigned Dermatology Provider 09/27/24 Noé Joseph LICSW [address] [place] [address] Assigned Behavioral Health Provider 11/27/24 documented as of this encounter
--- OUTSIDE RECORDS SUMMARY | 2025-05-29 23:39 | XMS_ITS | Encounter Summary ---
Author Organization [facility] Address [address] [place] [address] Care Team Providers Care Dispatcher Maintenance Service Name Role Phone Olamide Calhoun NP Primary Care Provider [phone] Olamide Calhoun NP Unavailable [phone] Megan Lund MD Unavailable [phone] Patricia Ann PA-C Unavailable [phone] Loreto De Jesus PA-C Unavailable [phone] Patricia Ann PA-C Unavailable [phone] Loreto De Jesus PA-C Unavailable [phone] Patricia Ann PA-C Primary Care Provider Cheryl Cook [facility] Unavailable [phone] Loreto De Jesus PA-C Unavailable [phone] Noé Joseph [facility] Unavailable [phone] Encounter Details Date Type Department Care Team (Late st Contact Info) Description 11/20/2021 [facility] Miguel Ángel [address] [address] Maia Aragon Social History Tobacco [...] file Legal Sex Female 4:30 AM CLEANER AND POLISHER Gender Identity Not on file Sexual Orientation Not on file documented as of this encounter Plan of Treatment Upcoming Encounters Date Type Department Care Team (Late st Contact Info) Description 06/09/2025 8:30 AM CLEANER AND POLISHER Office Visit [facility] [address] [place] [address] Kesha Monique PA-C [address] [place] [address] 06/18/2025 10:00 AM CLEANER AND POLISHER Virtual Visit [facility] [address] [place] [address] Noé Joseph[address] [address] 08/11/2025 10:00 AM CLEANER AND POLISHER Virtual Visit [facility] [address] [place] [address] Noé Joseph[address] [address] documented as of this encounter Visit Diagnoses Not on filedocumented in this encounter Additional Health Concerns Assessment Noted Time PHQ-9 Depression Total Score: 7 08/17/19 21 3:08 PM CLEANER AND POLISHER documented as of this encounter Care Teams Dispatcher Maintenance Service Relationship Specialty Start Date End Date Olamide Calhoun NP PCP - General Family Practice 04/05/14 02/23/24 Patricia Ann PA-C [address] [place] [address] PCP - General Family Medicine 02/24/24 Olamide Calhoun, SECURITY OFFICER [address] [address] Assigned PCP 02/15/19 03/02/22 [place] [address] [address] [facility] [place] [address] Assigned PCP 03/03/22 07/12/23 Patricia Ann PA-C [address] [place] [address] Referring Physician Family Medicine 07/05/23 Loreto De Jesus PA-C [address] [place] [address] Physician Tool Chaser Dermatology 07/05/23 Patricia Ann PA-C [address] [place] [address] Assigned PCP 07/13/23 Loreto De Jesus PA-C [address] [place] [address] Assigned Surgical Provider 01/28/24 Cheryl Cook [facility] [address]00 [facility] [place] [address] Assigned Behavioral Health Provider 03/30/24 11/26/24 Loreto De Jesus PA-C [address] [place] [address] Assigned Dermatology Provider 09/27/24 Noé Joseph LICSW [address] [place] [address] Assigned Behavioral Health Provider 11/27/24 documented as of this encounter
--- OUTSIDE RECORDS SUMMARY | 2025-05-29 23:39 | XMS_ITS | Encounter Summary ---
Author Organization [facility] Address [address] [place] [address] Care Team Providers Care Seo Expert Name Role Phone Olamide Calhoun NP Primary Care Provider [phone] Olamide Calhoun NP Unavailable [phone] Megan Lund MD Unavailable [phone] Patricia Ann PA-C Unavailable [phone] Loreto De Jesus PA-C Unavailable Patricia Ann PA-C Unavailable [phone] Loreto De Jesus PA-C Unavailable Patricia Ann PA-C Primary Care Provider Cheryl Cook [facility] Unavailable [phone] Loreto De Jesus PA-C Unavailable Noé Joseph [facility] Unavailable [phone] Reason for Visit * Reason Comments Medication Refill APRI 0.15-30 MG-MCG tablet Encounter Details Date Type Department Care Team (Late st Contact Info) Description 09/18/2021 Refill M [facility] [address] [place] [phone] Olamide Calhoun AIRCRAFT ENGINE CYLINDER MECHANIC [address] [phone] Medication Refill ( APRI 0.15-30 MG-MCG tablet) [...] on file Legal Sex Female 4:30 AM GRINDER OPERATOR EXTERNAL TOOL Gender Identity Not on file Sexual Orientation Not on file documented as of this encounter Miscellaneous Notes * Telephone Encounter - Bonnie Henry RN - 09/20/2021 11:47 AM CDT Routing refill request to provider for review/approval because: --Last visit: 02/24/2020 [facility]. --Last two orders sent in were brigitte, and msg left with mother on 07/27/21 that patient due for visit. Ibm Mainframe Systems Programmer, --Please contact patient and ask to schedule an annual visit/physical. --A refill request for medication was sent to the provider. documented in this encounter Plan of Treatment Upcoming Encounters Date Type Department Care Team (Late st Contact Info) Description 06/09/2025 8:30 AM GRINDER OPERATOR EXTERNAL TOOL Office Visit [facility] [address] [place] [phone] Kesha Monique PA-C [address] [place] [address] 06/18/2025 10:00 AM GRINDER OPERATOR EXTERNAL TOOL Virtual Visit [facility] 2900 [place] [address] Noé Joseph, SOFTWARE TEST DEVELOPER 45 [place] [address] 08/11/2025 10:00 AM GRINDER OPERATOR EXTERNAL TOOL Virtual Visit [facility] [address] [place] [address] Noé Joseph [facility] 45 [place] [address] documented as of this encounter Visit Diagnoses Diagnosis Mood swing Other specified episodic mood disorder documented in this encounter Additional Health Concerns Assessment Noted Time PHQ-9 Depression Total Score: 7 08/17/19 21 3:08 PM GRINDER OPERATOR EXTERNAL TOOL documented as of this encounter Care Teams Seo Expert Relationship Specialty Start Date End Date Olamide Calhoun, AIRCRAFT ENGINE CYLINDER MECHANIC PCP - General Family Practice 04/05/14 02/23/24 Patricia Ann PA-C [address] [place] [address] PCP - General Family Medicine 02/24/24 Olamide Calhoun, AIRCRAFT ENGINE CYLINDER MECHANIC [address] [address] Assigned PCP 02/15/19 03/02/22 [place] [address] [place] [address] Assigned PCP 03/03/22 07/12/23 Patricia Ann PA-C [address] [place] [phone] Referring Physician Family Medicine 07/05/23 Loreto De Jesus PA-C [address] [place] [address] Physician Semiconductor Wafers Etch Operator Dermatology 07/05/23 Patricia Ann PA-C [address] [place] [address] Assigned PCP 07/13/23 Loreto De Jesus PA-C [address] [place] [address] Assigned Surgical Provider 01/28/24 Cheryl Cook [facility] [address]00 [place] [address] Assigned Behavioral Health Provider 03/30/24 11/26/24 Loreto De Jesus PA-C [address] [place] [address] Assigned Dermatology Provider 09/27/24 Noé Joseph LICSW [address] [place] [address] Assigned Behavioral Health Provider 11/27/24 documented as of this encounter
--- OUTSIDE RECORDS SUMMARY | 2025-05-29 23:39 | XMS_ITS | Encounter Summary ---
Author Organization [facility] Address [address] [place] [address] Care Team Providers Care Joint Machine Operator Name Role Phone Olamide Calhoun WAREHOUSE ORDER FILLER Primary Care Provider Olamide Calhoun WAREHOUSE ORDER FILLER Unavailable [phone] Yuriy Melgar MD Unavailable Megan Lund MD Unavailable Patricia Ann PA-C Unavailable [phone] Loreto De Jesus PA-C Unavailable Patricia Ann PA-C Unavailable [phone] Loreto De Jesus PA-C Unavailable Patricia Ann PA-C Primary Care Provider [phone] Cheryl Cook [facility] Unavailable [phone] Loreto De Jesus PA-C Unavailable Noé Joseph Unavailable [phone] Encounter Details Date Type Department Care Team (Late st Contact Info) Description 01/07/2020 [facility] [place] [address] [facility] [address] [place] [phone] Yuriy Melgar MD [facility] [address] [facility] [address] [place] [address] Social History Tobacco Use Types Packs/Day Years Used Date Smoking Tobacco: Never Smokeless Tobacco: Never Comments:cigar outside Alcohol Use Standard Drinks/Week Comments No 0 (1 standard drink = 0.6 oz pur e alcohol) PHQ-2 Answer Date Recorded PHQ-2 Score 2 10/14/2019 Comments No Sex and Gender Information Value Date Recorded Sex Assigned at Not on file Legal Sex Female 4:30 AM BUSINESS PROCESS COORDINATOR Gender Identity Not on file Sexual Orientation Not on file COVID-19 Exposure Response Date Recorded In the last month, have you been in contact with someone who was confirmed or suspected to have Coronavirus / COVID-19? No / Unsure 01/05/2020 9:29 AM CDT documented as of this encounter Plan of Treatment Upcoming Encounters Date Type Department Care Team (Late st Contact Info) Description 06/09/2025 8:30 AM BUSINESS PROCESS COORDINATOR Office Visit [facility] [id number] [place] [phone] Kesha Monique PA-C [address] [place] [address] 06/18/2025 10:00 AM BUSINESS PROCESS COORDINATOR Virtual Visit [facility] [address] [place] [phone] Noé Joseph[address] [address] 08/11/2025 10:00 AM BUSINESS PROCESS COORDINATOR Virtual Visit [facility] [address] [place] [phone] Noé Joseph[address] [address] documented as of this encounter Visit Diagnoses Not on filedocumented in this encounter Additional Health Concerns Assessment Noted Time PHQ-9 Depression Total Score: 10 020 2:09 PM CDT documented as of this encounter Care Teams Joint Machine Operator Relationship Specialty Start Date End Date Olamide Calhoun, WAREHOUSE ORDER FILLER PCP - General Family Practice 04/05/14 02/23/24 Patricia Ann PA-C [address] [place] [phone] PCP - General Family Medicine 02/24/24 Olamide Calhoun, WAREHOUSE ORDER FILLER [address] [facility] [address] [place] [address] Assigned PCP 02/15/19 03/02/22 Yuriy Melgar MD [facility] [address] [facility] [address] [place] [address] Assigned Pediatric Specialist Provider 04/29/20 07/08/21 Megan Lund MD [address] [place], [place] [address] [address] Assigned PCP 03/03/22 07/12/23 Patricia Ann PA-C [address] [place] [phone] Referring Physician Family Medicine 07/05/23 Loreto De Jesus PA-C [address] [place] [address] [address] [place], [place] [address] Physician Colorectal Surgeon Dermatology 07/05/23 Patricia Ann PA-C [address] [place] [phone] Assigned PCP 07/13/23 Loreto De Jesus PA-C [address] [place] [address] Assigned Surgical Provider 01/28/24 Cheryl Cook, [facility] [address] [place] [address] Assigned Behavioral Health Provider 03/30/24 11/26/24 Loreto De Jesus PA-C [address] [place] [address] Assigned Dermatology Provider 09/27/24 Noé Joseph [facility]IC[facility] [address] [place] [phone] Assigned Behavioral Health Provider 11/27/24 documented as of this encounter
== END 2025-05-29 23:53 | disposition home or self-care (01) ==
LOC: ED 23:37
PROVIDERS: Emergency Provider Family Medicine
DX: M54.50 Low back pain, unspecified (principal)
CPT/HCPCS: 72100; 99283; 99284; A9270